=== PATIENT | female | born 1965 | race Caucasian/White ===

== ENCOUNTER 2018-01-31 22:18 | Emergency (ER) | payer OTHER ==
[~2018-01-31] VITALS: Ht 160 cm; Wt 106.6 kg
[~2018-01-31 22:18] MED LIST: XARELTO20 MG
--- NOTE | 2018-02-01 00:45 | Diagnostic Imaging Report ---
ANKLE 3 + VIEWS RIGHT HISTORY: Ankle injury COMPARISON: None FINDINGS: Bones: No displaced fracture. Osseous alignment is within normal limits. Joints: The joint spaces are well-maintained. Soft tissues: Moderate soft tissue swelling predominantly involving the medial malleolar region IMPRESSION: No acute osseous abnormality. Signed by: Dr. Jhon Mendoza M.D. on 02/01/2018 12:41 AM
[2018-02-01 00:56] VITALS: BP 112/76
== END 2018-02-01 01:08 | disposition home or self-care (01) ==
LOC: ER 22:18
DX: M25.571 Pain in right ankle and joints of right foot (principal); S99.911A Unspecified injury of right ankle, initial encounter; X50.1XXA Overexertion from prolonged static or awkward postures, initial encounter; Y92.008 Other place in unspecified non-institutional (private) residence as the place of occurrence of the external cause; F31.9 Bipolar disorder, unspecified; B19.10 Unspecified viral hepatitis B without hepatic coma; K21.9 Gastro-esophageal reflux disease without esophagitis; E78.00 Pure hypercholesterolemia, unspecified; F41.9 Anxiety disorder, unspecified; F17.210 Nicotine dependence, cigarettes, uncomplicated
CPT/HCPCS: 99283

== ENCOUNTER 2018-03-29 20:59 | Emergency (ER) | payer OTHER ==
[~2018-03-29] VITALS: Ht 160 cm; Wt 106.6 kg
--- NOTE | 2018-03-29 22:32 | Diagnostic Imaging Report ---
EXAM: PELVIS AP 1-2 VIEWS INDICATION: Not available COMPARISON: None FINDINGS: BONES: No acute fractures. JOINTS: No malalignment. SOFT TISSUES: Partially visualized IVC filter. Bilateral hip calcified injection granulomas. IMPRESSION: No acute pelvic findings. Signed by: Dr. Cheli Mcdonnell M.D. on 03/29/2018 10:29 PM
--- NOTE | 2018-03-29 22:32 | Diagnostic Imaging Report ---
EXAM: lumbar spine, 3 views, AP, lateral and coned lateral view INDICATION: Not available COMPARISON: None FINDINGS: BONES: Five lumbar-type vertebral bodies. The alignment is within normal limits. No acute displaced fractures. No lytic or blastic lesions. DISCS: The disc-spaces are well-maintained. JOINTS: The facet joints and sacroiliac joints are unremarkable. SOFT TISSUES: Right upper quadrant surgical clips. IVC filter at the L3/L4 level. Regional vascular calcifications. IMPRESSION: No acute lumbar spine radiographic findings. Signed by: Dr. Cheli Mcdonnell M.D. on 03/29/2018 10:28 PM
--- NOTE | 2018-03-29 22:34 | Diagnostic Imaging Report ---
EXAM: CHEST SINGLE (NOT PORTABLE), AP 1 view INDICATION: None available COMPARISON: AP view of the chest March 13, 2017 FINDINGS: LINES/TUBES: None LUNGS: No consolidations or edema. PLEURA: No effusions or pneumothorax. HEART AND MEDIASTINUM: Normal size and contour. BONES AND SOFT TISSUES: No acute findings. IMPRESSION: No acute thoracic abnormality. Signed by: Dr. Cheli Mcdonnell M.D. on 03/29/2018 10:31 PM
--- NOTE | 2018-03-29 23:23 | Diagnostic Imaging Report ---
Exams: Head and cervical spine CTs without IV contrast History: Trauma, fall, pain Comparison studies: None Technique: Axial images were obtained from the brain and cervical spine. Coronal and sagittal images reconstructed from the axial data. Dose modulation, iterative reconstruction, and/or weight based adjustment of the mA/kV was utilized to reduce the radiation dose to as low as reasonably achievable. Intravenous contrast: None Findings: Head CT: Scalp: No abnormalities. Bones: No fractures, blastic or lytic lesions. Extra-axial spaces: No masses. No fluid collections. Brain sulci: Appropriate for age. Ventricles: Normal in size and configuration. No hydrocephalus. Parenchyma: No abnormal densities. No masses, acute hemorrhage, acute or chronic vascular insults. Sellar/suprasellar region: No abnormalities. Craniocervical junction: The foramen magnum is patent. No Chiari one malformation. Cervical spine CT: Fractures: None. Soft tissues: No gross acute abnormalities. Atlantoaxial articulation: Intact. Alignment: Straightened cervical curvature may be positional. No subluxations. Cervicomedullary junction: No abnormalities. The foramen magnum is patent. Vertebrae: No infection or neoplasm. Degenerative changes: Disc height is maintained. Patent canal and foramina. Mild facet arthrosis at C4-C5 and C5-C6 on the left. Incidental findings: Calcified atherosclerosis in the cervical carotid bulbs and in the carotid siphons. IMPRESSION: Head CT: No acute abnormalities. Cervical spine CT: 1. No cervical spine fracture or subluxation. 2. Please note, cannot likely evaluate ligament, spinal cord and or vascular abnormalities on the basis of this examination. Signed by: Dr. Irvin Lanier M.D. on 03/29/2018 11:20 PM
[2018-03-29 23:55] VITALS: BP 110/58
--- OUTSIDE RECORDS SUMMARY | 2018-04-01 13:48 | XMS REPORT ---
Author Author [facility] Address Unknown Phone Unavailable Care Team Providers Care Chiropractor Assistant Name Role Phone Kit RIOS Unavailable Unavailable Sabino JHA Unavailable Unavailable Problems This patient has no known problems. Allergies, Adverse Reactions, Alerts This patient has no known allergies or adverse reactions. Medications This patient has no known medications. Results Test Description Test Time Test Comments Text Results Atomic Results Result Comments CT CERVICAL SPINE WO 2018-03-29 23:02:00 [place] [address] Patient Name: JOSHUA WEAVER MR #: [id number] : 1965 Age/Sex: 52/F Req #: [id number] Adm Physician: Ordered by: PELON RIOS MD Report #: [id number] Location: ER Room/Bed: Procedure: [id number] CT/CT CERVICAL SPINE WO Exam Date: 03/29/18 Exam Time: 2210 REPORT STATUS: Signed Exams: Head and cervical spine CTs without IV contrast History: Trauma, fall, pain Comparison studies: None Technique: Axial images were obtained from the brain and cervical spine. Coronal and sagittal images reconstructed from the axial data. Dose modulation, iterative reconstruction, and/or weight based adjustment of the mA/kV was utilized to reduce the radiation dose to as low as reasonably achievable. Intravenous contrast: None Findings: Head CT: Scalp: No abnormalities. Bones: No fractures, blastic or lytic lesions. Extra-axial spaces: No masses. No fluid collections. Brain sulci: Appropriate for age. Ventricles: Normal in size and configuration. No hydrocephalus. Parenchyma: No abnormal densities. No masses, acute hemorrhage, acute or chronic vascular insults. Sellar/suprasellar region: No abnormalities. Craniocervical junction: The foramen magnum is patent. No Chiari one malformation. Cervical spine CT: Fractures: None. Soft tissues: No gross acute abnormalities. Atlantoaxial articulation: Intact. Alignment: Straightened cervical curvature may be positional. No subluxations. Cervicomedullary junction: No abnormalities. The foramen magnum is patent. Vertebrae: No infection or neoplasm. Degenerative changes: Disc height is maintained. Patent canal and foramina. Mild facet arthrosis at C4-C5 and C5-C6 on the left. Incidental findings: Calcified atherosclerosis in the cervical carotid bulbs and in the carotid siphons. IMPRESSION: Head CT: No acute abnormalities. Cervical spine CT: 1. No cervical spine fracture or subluxation. 2. Please note, cannot likely evaluate ligament, spinal cord and or vascular abnormalities on the basis of this examination. Signed by: Dr. Rubio Lanier M.D. on 03/29/2018 11:20 PM Dictated By: RUBIO LANIER MD 19 Transcribed By: ORIANA on 03/29/182319 COPY TO: PELON RIOS MD CT BRAIN WO 2018-03-29 23:02:00 [place] [address] Patient Name: JOSHUA WEAVER MR #: [id number] : 1965 Age/Sex: 52/F Req #: [id number] Adm Physician: Ordered by: PELON RIOS MD Report #: [id number] Location: Room/Bed: Procedure: [id number] CT/CT BRAIN WO Exam Date: 03/29/18 Exam Time: 2209 REPORT STATUS: Signed Exams: Head and cervical spine CTs without IV contrast History: Trauma, fall, pain Comparison studies: None Technique: Axial images were obtained from the brain and cervical spine. Coronal and sagittal images reconstructed from the axial data. Dose modulation, iterative reconstruction, and/or weight based adjustment of the mA/kV was utilized to reduce the radiation dose to as low as reasonably achievable. Intravenous co ntrast: None Findings: Head CT: Scalp: No abnormalities. Bones: No fractures, blastic or lytic lesions. Extra-axial spaces: No masses. No fluid collections. Brain sulci: Appropriate for age. Ventricles: Normal in size and configuration. No hydrocephalus. Parenchyma: No abnormal densities. No masses, acute hemorrhage, acute or chronic vascular insults. Sellar/suprasellar region: No abnormalities. Craniocervical junction: The foramen magnum is patent. No Chiari one malformation. Cervical spine CT: Fractures: None. Soft tissues: No gross acute abnormalities. Atlantoaxial articulation: Intact. Alignment: Straightened cervical curvature may be positional. No subluxations. Cervicomedullary junction: No abnormalities. The foramen magnum is patent. Vertebrae: No infection or neoplasm. Degenerative changes: Disc height is maintained. Patent canal and foramina. Mild facet arthrosis at C4-C5 and C5-C6 on the left. Incidental findings: Calcified atherosclerosis in the cervical carotid bulbs and in the carotid siphons. IMPRESSION: Head CT: No acute abnormalities. Cervical spine CT: 1. No cervical spine fracture or subluxation. 2. Please note, cannot likely evaluate ligament, spinal cord and or vascular abnormalities on the basis of this examination. Signed by: Dr. Rubio Lanier M.D. on 03/29/2018 11:20 PM Dictated By: RUBIO LANIER MD 19 Transcribed By: ORIANA on 03/29/182319 COPY TO: PELON RIOS MD CHEST SINGLE (NOT PORTABLE) 2018-03-29 22:29:[address] [address] Patient Name: JOSHUA WEAVER MR #: [id number] : 1965 Age/Sex: 52/F Req #: [id number] Adm Physician: Ordered by: PELON RIOS MD Report #: [id number] Location: ER Room/Bed: Procedure: [id number] DX/CHEST SINGLE (NOT PORTABLE) Exam Date: 03/29/18 Exam Time: 2154 REPORT STATUS: Signed EXAM: CHEST SINGLE (NOT PORTABLE), AP 1 view INDICATION: None available COMPARISON: AP view of the chest March 13, 2017 FINDINGS: LINES/TUBES: None LUNGS: No consolidations or edema. PLEURA: No effusions or pneumothorax. HEART AND MEDIASTINUM: Normal size and contour. BONES AND SOFT TISSUES: No acute findings. IMPRESSION: No acute thoracic abnormality. Signed by: Dr. Fercho Mcdonnell M.D. on 03/29/2018 10:31 PM Dictated By: FERCHO MCDONNELL MD 30 Transcribed By: ORIANA on 03/29/182230 COPY TO: PELON RIOS MD PELVIS AP 1-2 VIEWS 2018-03-29 22:28:[address] [address] Patient Name: JOSHUA WEAVER MR #: [id number] : 1965 Age/Sex: 52/F Req #: [id number] Adm Physician: Ordered by: PELON RIOS MD Report #: [id number] Location: ER Room/Bed: Procedure: [id number] DX/PELVIS AP 1-2 VIEWS Exam Date: 03/29/18 Exam Time: 2154 REPORT STATUS: Signed EXAM: PELVIS AP 1-2 VIEWS INDICATION: Not available COMPARISON: None FINDINGS: BONES: No acute fractures. JOINTS: No malalignment. SOFT TISSUES: Partially visualized IVC filter. Bilateral hip calcified injection granulomas. IMPRESSION: No acute pelvic findings. Signed by: Dr. Fercho Mcdonnell M.D. on 03/29/2018 10:29 PM Dictated By: FERCHO MCDONNELL MD 28 Transcribed By: ORIANA on 03/29/182228 COPY TO: PELON RIOS MD SP LUMBAR AP LATERAL 2-3VWS 2018-03-29 22:27:00 [place] [address] Patient Name: JOSHUA WEAVER MR #: [id number] : 1965 Age/Sex: 52/F Req #: [id number] Adm Physician: Ordered by: PELON RIOS MD Report #: [id number] Location: ER Room/Bed: Procedure: [id number] DX/SP LUMBAR AP LATERAL 2-3VWS Exam Date: 03/29/18 Exam Time: 2154 REPORT STATUS: Signed EXAM: lumbar spine, 3 views, AP, lateral and coned lateral view INDICATION: Not available COMPARISON: None FINDINGS: BONES: Five lumbar-type vertebral bodies. The alignment is within normal limits. No acute displaced fractures. No lytic or blastic lesions. DISCS: The disc-spaces are well-maintained. JOINTS: The facet joints and sacroiliac joints are unremarkable. SOFT TISSUES: Right upper quadrant surgical clips. IVC filter at the L3/L4 level. Regional vascular calcifications. IMPRESSION: No acute lumbar spine radiographic findings. Signed by: Dr. Fercho Mcdonnell M.D. on 03/29/2018 10:28 PM Dictated By: FERCHO MCDONNELL MD 27 Transcribed By: ORIANA on 03/29/182227 COPY TO: PELON RIOS MD ANKLE 3 + VIEWS RIGHT 2018-02-01 00:41:00 [place] [address] Patient Name: JOSHUA WEAVER MR #: [id number] : 1965 Age/Sex: 52/F Req #: [id number] Adm Physician: Ordered by: KATE JHA MD Report #: [id number] Location: ER Room/Bed: Procedure: [id number] DX/ANKLE 3 + VIEWS RIGHT Exam Date: 01/31/18 Exam Time: 2340 REPORT STATUS: Signed ANKLE 3 + VIEWS RIGHT HISTORY: Ankle injury COMPARISON: None FINDINGS: Bones: No displaced fracture. Osseous alignment is within normal limits. Joints: The joint spaces are well-maintained. Soft tissues: Moderate soft tissue swelling predominantly involving the medial malleolar region IMPRESSION: No acute osseous abnormality. Signed by: Dr. Jhon Mendoza M.D. on 02/01/2018 12:41 AM Dictated By: JHON BATES MD Transcribed By: ORIANA on 02/01/1840 COPY TO: KATE JHA MD CHEST SINGLE (PORTABLE) [place] [address] Patient Name: JOSHUA WEAVER MR #: [id number] : 1965 Age/Sex: 51/F Req #: [id number] Adm Physician: Ordered by: BAILEY JACKMAN NP Report #: [id number] Location: ER Room/Bed: Procedure: [id number] DX/CHEST SINGLE (PORTABLE) Exam Date: 03/13/17 Exam Time: 2017 REPORT STATUS: Signed EXAMINATION: CHEST SINGLE (PORTABLE) INDICATION: COMPARISON: None FINDINGS: AP view TUBES and LINES: None. LUNGS: Low lung volumes. Lungs are clear. There is no evidence of pneumonia or pulmonary edema. PLEURA: No pleural effusion or pneumothorax. HEART AND MEDIASTINUM: The cardiomediastinal silhouette is unremarkable. BONES AND SOFT TISSUES: No acute osseous lesion. Soft tissues are unremarkable. UPPER ABDOMEN: No free air under the diaphragm. IMPRESSION: No acute thoracic abnormality. Low lung volumes. Signed by: Dr. Chris Billings M.D. on 03/13/2017 8:56 PM Dictated By: CHRIS BILLINGS MD 55 Transcribed By: ORIANA on 03/13/172055 COPY TO: BAILEY JACKMAN NP
== END 2018-03-30 00:03 | disposition home or self-care (01) ==
LOC: ER 20:59
DX: M54.2 Cervicalgia (principal); S16.1XXA Strain of muscle, fascia and tendon at neck level, initial encounter; M54.5 Low back pain; W01.0XXA Fall on same level from slipping, tripping and stumbling without subsequent striking against object, initial encounter; Y92.008 Other place in unspecified non-institutional (private) residence as the place of occurrence of the external cause; G89.29 Other chronic pain; F17.210 Nicotine dependence, cigarettes, uncomplicated
CPT/HCPCS: 70450; 71045; 72100; 72125; 72170; 99282

== ENCOUNTER 2018-09-21 08:32 | Emergency (ER) | payer OTHER ==
[~2018-09-21] VITALS: Ht 160 cm; Wt 106.6 kg
--- OUTSIDE RECORDS SUMMARY | 2018-09-21 08:35 | XMS REPORT ---
Author Author [facility] Address Unknown Phone Unavailable Care Team Providers Care Director Insurance Name Role Phone Kit RIOS Unavailable Unavailable Sabino JHA Unavailable Unavailable Payers Payer Name Policy Type Policy Number Effective Date Expiration Date Problems This patient has no known problems. Allergies, Adverse Reactions, Alerts Allergy Name Allergy Type Status Severity Reaction(s) Onset Date Inactive Date Treating Clinician Comments ketorolac tromethamine DA Active SV 2018-04-24 00:00:00 ciprofloxacin HCl DA Active SV 2018-04-24 00:00:00 sumatriptan succinate DA Active SV 2018-04-24 00:00:00 tramadol HCl DA Active SV 2018-04-24 00:00:00 sumatriptan DA Active SV 2018-04-24 00:00:00 tazobactam DA Active SV 2018-04-24 00:00:00 cyclobenzaprine DA Active U 2018-04-24 00:00:00 piperacillin DA Active SV 2018-04-24 00:00:00 vancomycin DA Active SV 2018-04-24 00:00:00 ketorolac tromethamine DA Active SV 2017-12-29 00:00:00 ciprofloxacin HCl DA Active SV 2017-12-29 00:00:00 sumatriptan succinate DA Active SV 2017-12-29 00:00:00 tramadol HCl DA Active SV 2017-12-29 00:00:00 acetaminophen DA Active MO 2017-12-29 00:00:00 sumatriptan DA Active SV 2017-12-29 00:00:00 tazobactam DA Active SV 2017-12-29 00:00:00 cyclobenzaprine DA Active U 2017-12-29 00:00:00 piperacillin DA Active SV 2017-12-29 00:00:00 vancomycin DA Active SV 2017-12-29 00:00:00 Medications This patient has no known medications. Results Test Description Test Time Test Comments Text Results Atomic Results Result Comments BASIC METABOLIC PANEL 2018-08-15 17:43:00 SODIUM (test code=NA) 138 mmol/L 136-145 POTASSIUM (test code=K) 4.4 mmol/L 3.5-5.1 CHLORIDE (test code=CL) 106.0 mmol/L 98-107 CARBON DIOXIDE (test code=CO2) 26.0 mmol/L 21-32 ANION GAP (test code=GAP) 10.4 10-20 GLUCOSE (test code=GLU) 89 mg/dL 74-106 BLOOD UREA NITROGEN (test code=BUN) 7 mg/dL 7-18 GLOMERULAR FILTRATION RATE (test code=GFR) > 60 mL/min >=60 Estimated GFR by using Modified MDRD formula.Chronic kidney disease is defined as either kidney damageor GFR <60 mL/min/1.73 m2 for >3 months. CREATININE (test code=CREAT) 0.60 mg/dL 0.55-1.02 Note change in reference range due to change in reagent. BUN/CREATININE RATIO (test code=BUN/CREA) 11.1 10-20 CALCIUM (test code=CA) 9.1 mg/dL 8.5-10.1 CBC W/AUTO [id number] 17:12:00* Test Item Value Reference Range Comments WHITE BLOOD CELL (test code=WBC) 8.0 K/mm3 4.5-12.5 RED BLOOD CELL (test code=RBC) 4.99 mill/mm3 3.7-5.2 HEMOGLOBIN (test code=HGB) 14.5 gram/dL 11.5-15.5 HEMATOCRIT (test code=HCT) 47.3 % 36.0-46.0 MEAN CELL VOLUME (test code=MCV) 94.8 fL 80-98 MEAN CELL HGB (test code=MCH) 29.1 picogram 27.0-33.0 MEAN CELL HGB CONCETRATION (test code=MCHC) 30.7 gram/dL 33.0-36.0 RED CELL DISTRIBUTION WIDTH (test code=RDW) 13.4 % 11.6-16.2 RED CELL DISTRIBUTION WIDTH SD (test code=RDW-SD) 46.7 fL 37.0-51.0 PLATELET COUNT (test code=PLT) 274 K/mm3 150-450 MEAN PLATELET VOLUME (test code=MPV) 10.9 fL 6.7-11.0 NEUTROPHIL % (test code=NT%) 52.2 % 39.0-69.0 IMMATURE GRANULOCYTE % (test code=IG%) 0.4 % 0.0-5.0 LYMPHOCYTE % (test code=LY%) 41.2 % 25.0-55.0 MONOCYTE % (test code=MO%) 4.6 % 0.0-10.0 EOSINOPHIL % (test code=EO%) 1.1 % 0.0-5.0 BASOPHIL % (test code=BA%) 0.5 % 0.0-1.0 NUCLEATED RBC % (test code=NRBC%) 0.0 % 0-0 NEUTROPHIL # (test code=NT#) 4.19 K/mm3 1.8-7.7 IMMATURE GRANULOCYTE # (test code=IG#) 0.03 x10 3/uL 0-0.03 LYMPHOCYTE # (test code=LY#) 3.31 K/mm3 1.0-5.0 MONOCYTE # (test code=MO#) 0.37 K/mm3 0-0.8 EOSINOPHIL # (test code=EO#) 0.09 K/mm3 0.0-0.5 BASOPHIL # (test code=BA#) 0.04 K/mm3 0.0-0.2 NUCLEATED RBC # (test code=NRBC#) 0.00 K/mm3 0.0-0.1 CBC W/AUTO [id number] 17:10:00* Test Item Value Reference Range Comments WHITE BLOOD CELL (test code=WBC) K/mm3 4.5-12.5 RED BLOOD CELL (test code=RBC) mill/mm3 3.7-5.2 HEMOGLOBIN (test code=HGB) 14.5 gram/dL 11.5-15.5 HEMATOCRIT (test code=HCT) % 36.0-46.0 MEAN CELL VOLUME (test code=MCV) fL 80-98 MEAN CELL HGB (test code=MCH) picogram 27.0-33.0 MEAN CELL HGB CONCETRATION (test code=MCHC) gram/dL 33.0-36.0 RED CELL DISTRIBUTION WIDTH (test code=RDW) % 11.6-16.2 RED CELL DISTRIBUTION WIDTH SD (test code=RDW-SD) fL 37.0-51.0 PLATELET COUNT (test code=PLT) K/mm3 150-450 MEAN PLATELET VOLUME (test code=MPV) fL 6.7-11.0 NEUTROPHIL % (test code=NT%) % 39.0-69.0 IMMATURE GRANULOCYTE % (test code=IG%) % 0.0-5.0 LYMPHOCYTE % (test code=LY%) % 25.0-55.0 MONOCYTE % (test code=MO%) % 0.0-10.0 EOSINOPHIL % (test code=EO%) % 0.0-5.0 BASOPHIL % (test code=BA%) % 0.0-1.0 NEUTROPHIL # (test code=NT#) K/mm3 1.8-7.7 LYMPHOCYTE # (test code=LY#) K/mm3 1.0-5.0 MONOCYTE # (test code=MO#) K/mm3 0-0.8 EOSINOPHIL # (test code=EO#) K/mm3 0.0-0.5 BASOPHIL # (test code=BA#) K/mm3 0.0-0.2 [id number] 10:27:00* Test Item Value Reference Range Comments GLUBED (test code=GLUBED) 123 MG/DL 70-110 Performed by certified welding machine operator electron beam at [facility] URINALYSIS [id number] 12:19:00* Test Item Value Reference Range Comments UA COLOR (test code=COLU) YELLOW YEL/STRAW UA APPEARANCE (test code=APPU) CLEAR CLEAR UA GLUCOSE DIPSTICK (test code=DGLUU) NEGATIVE NEGATIVE UA BILIRUBIN DIPSTICK (test code=BILU) NEGATIVE NEGATIVE UA KETONE DIPSTICK (test code=KETU) NEGATIVE NEGATIVE UA SPECIFIC GRAVITY (test code=SGU) 1.008 1.005-1.030 UA BLOOD DIPSTICK (test code=LUCRETIA) NEGATIVE NEGATIVE UA PH DIPSTICK (test code=MICHAEL) 6.0 5.0-7.0 UA PROTEIN DIPSTICK (test code=PROU) NEGATIVE NEGATIVE UA UROBILINIOGEN DIPSTICK (test code=URO) 0.2 mg/dL 0.2-1.0 UA NITRITE DIPSTICK (test code=JESENIA) POSITIVE NEGATIVE UA LEUKOCYTE ESTERASE DIPSTICK (test code=LEUU) TRACE NEGATIVE UA WBC (test code=WBCU) 4-9 WBC/HPF 0-3 UA RBC (test code=RBCU) 0-3 RBC/HPF 0-3 UA BACTERIA (test code=BACU) 3+ /HPF NONE SEEN UA SQUAMOUS CELLS (test code=SQU) 0-5 /HPF NONE SEEN UA CULT [id number] 12:19:00* Test Item Value Reference Range Comments UA CULTURE NEEDED? (test code=UACULT) NO, WBC<10 Criteria Culture Chk Criteria not met, Urine Culture cancelled. LACTIC ACID [id number] 12:16:00* Test Item Value Reference Range Comments LACTIC ACID POC (test code=LACTP) 1.3 MMOL/L 0.90-1.70 Performed by certified welding machine operator electron beam at [facility] - XR CHEST 1 [id number] 12:10:00 FAX: Woody Siddiqui DO [phone] [place]: St: REG Name: JOSHUA MONTEMAYOR [facility] [place] : [birth year] Age/S: 52/F [address] [place] [address] Unit #: [id number] Loc: [place] [address] Phys: Woody Sy DO Acct: [id number] Dis Date: Status: REG ER PHONE #: [phone] Exam Date: 07/24/2018 5891 FAX #: [phone] Reason: leukocytosis EXAMS: CPT CODE: [id number] XR CHEST 1 V 43965 EXAM: CHEST SINGLE VIEW HISTORY: 52-year-old female with leukocytosis COMPARISON: Chest radiograph 04/24/2018 FINDINGS: The lungs are clear. The cardiome diastinal silhouette is normal for projection. No acute osseous abnormali ty. IMPRESSION: 1. No acute cardiopulmonary ab normality. SL: [id number] Electronica lly Signed by Chun Calles on 07/24/2018 at 1210 Repo rted and signed by: Merced Calles M.D. CC: Woody Sy DO Technologist: Markus Shook RT(R) Trnscrd Date/Time/By: 07/24/2018 (1210) : By: Fercho [email or web address] Orig Print D/T: S: 07/24/2018 (3053) PAG E 1 Signed Report BASIC METABOLIC [id number] 11:10:00* Test Item Value Reference Range Comments SODIUM (test code=NA) 136 mEq/L 134-147 POTASSIUM (test code=K) 3.8 mEq/L 3.4-5.0 CHLORIDE (test code=CL) 103 mEq/L 100-108 CARBON DIOXIDE (test code=CO2) 27 mEq/L 21-33 ANION GAP (test code=GAP) 10 0-20 GLUCOSE (test code=GLU) 115 mg/dL 70-110 BLOOD UREA NITROGEN (test code=BUN) 7 mg/dL 7-18 GLOMERULAR FILTRATION RATE (test code=GFR) 104.2 90-95 Units of measure=ml/min/1.73 m2 CREATININE (test code=CREAT) 0.6 mg/dL 0.6-1.3 CALCIUM (test code=CA) 8.7 mg/dL 8.0-10.5 [id number] 11:10:00* Test Item Value Reference Range Comments TROPONIN-I (test code=TROPI) < 0.015 ng/mL 0.000-0.045 Negative: <=0.045 Positive: >=0.046 Correlation with serial results, other cardiac markers andclinical findings is necessary to determine the clinicalsignificance of this result. Results using different methodologies should not be comparedto one another as quantitative results may vary by method. - CT HEAD/BRAIN W/O [id number] 10:46:00 Name: JOSHUA WEAVER [facility] [place] John : 1965 Age/S: 52 / F [address] [place] [address] Unit #: [id number] Loc: [place] [address] Phys: Woody Sy DO Acct: [id number] Dis Date: Status: REG ER PHONE #: [phone] Exam Date: 07/24/2018 1036 FAX #: [phone] Reason: LEFT SIDE WEAKNESS EXAMS: CPT CODE: [id number] CT HEAD/BRAIN W/O CONT 98861 CT head without contrast 07/24/2018 HISTORY: Code neuro, left-sided weakness PROCEDURE: Multiple axial images from the base to the skull vertex were obtained without contrast. Coronal and sagittal reconstructed images were performed. DLP: 419.7 Comparison is made to 04/24/2018 FINDINGS: No acute hemorrhage, midline shift, extra-axial fluid collection, hydrocephalus, or mass lesion is present. No cortical hypodensity to suggest an acute infarct is noted. Zapata-white differentiation is within normal limits. Distal internal carotid arterial calcifications are present. The visualized mastoid air cells are clear. There is no air-fluid level in the visualized paranasal sinuses. IMPRESSION: No acute intracranial abnormality Findings were discussed with Dr. Sy by Dr. Monge at 10:45 AM on 07/24/2018. SL: [id number] at 1046 Reported and signed by: Chetan Monge M.D. CC: Woody Sy DO Technologist:Purnima Petersen RT(R)(CT) CTDI: DLP: Trnscb Date/Time: 07/24/2018 (7755) [id number] Orig Print D/T: S: 07/24/2018 (4709) CTDI: DLP: PAGE 1 Signed Report PROTHROMBIN [id number] 10:43:00* Test Item Value Reference Range Comments PROTHROMBIN TIME PATIENT (test code=PTP) 14.8 SECONDS 9.3-12.9 INTERNATIONAL NORMAL RATIO (test code=INR) 1.3 0.8-1.2 TARGET INR BY INDICATION Indication INR1. Prophylaxis of venous thrombosis 2.0 - 3.0 (orthopedic surgery), Prophylaxis of venous thrombosis (other than high-risk surgery), Treatment of Deep Vein Thrombosis/Pulmonary Embolism, Prevention of systemic embolism - Tissue heart valves, Acute Myocardial Infarction (to prevent systemic embolism), Valvular heart disease, Atrial Fibrillation, Bileaflet mechanical valve in aortic position.2. Mechanical prosthetic valves (high risk), 2.5 - 3.5 Presence of Lupus Anticoagulant or Antiphospholipid Antibodies, Prevention of systemic embolism - Acute Myocardial Infarction (to prevent recurrent infarct). THROMBOPLASTIN TIME [id number] 10:43:00* Test Item Value Reference Range Comments THROMBOPLASTIN TIME PARTIAL (test code=PTT) 24.8 Seconds 25.0-39.5 Therapeutic Range: 61.8-83.8 Sec Effective 07/15/2013 CBC W/O [id number] 10:40:00* Test Item Value Reference Range Comments WHITE BLOOD CELL (test code=WBC) 16.45 x10 3/uL 4.5-11.0 RED BLOOD CELL (test code=RBC) 4.11 x10 6/uL 3.54-5.02 HEMOGLOBIN (test code=HGB) 12.4 g/dL 11.0-15.0 HEMATOCRIT (test code=HCT) 39.4 % 33.0-45.0 MEAN CELL VOLUME (test code=MCV) 95.9 fL 81.0-99.0 MEAN CELL HGB (test code=MCH) 30.2 pg 27.0-33.0 MEAN CELL HGB CONCETRATION (test code=MCHC) 31.5 g/dL 33.0-37.0 RED CELL DISTRIBUTION WIDTH CV (test code=RDW) 13.3 % 11.5-14.5 RED CELL DISTRIBUTION WIDTH SD (test code=RDW-SD) 47.1 fL 37.0-54.0 PLATELET COUNT (test code=PLT) 336 x10 3/uL 150-400 MEAN PLATELET VOLUME (test code=MPV) 10.1 fL 7.0-9.0 B-TYPE NATRIURETIC [id number] 02:15:00* Test Item Value Reference Range Comments B-TYPE NATRIURETIC PEPTIDE (test code=BNP) 40.87 pgram/mL 0-100 BASIC METABOLIC [id number] 01:48:00* Test Item Value Reference Range Comments SODIUM (test code=NA) 139 mmol/L 136-145 POTASSIUM (test code=K) 4.0 mmol/L 3.5-5.1 CHLORIDE (test code=CL) 105.0 mmol/L 98-107 CARBON DIOXIDE (test code=CO2) 25.0 mmol/L 21-32 ANION GAP (test code=GAP) 13.0 10-20 GLUCOSE (test code=GLU) 93 mg/dL 74-106 BLOOD UREA NITROGEN (test code=BUN) 11 mg/dL 7-18 GLOMERULAR FILTRATION RATE (test code=GFR) > 60 mL/min >=60 Estimated GFR by using Modified MDRD formula.Chronic kidney disease is defined as either kidney damageor GFR <60 mL/min/1.73 m2 for >3 months. CREATININE (test code=CREAT) 0.70 mg/dL 0.55-1.02 Note change in reference range due to change in reagent. BUN/CREATININE RATIO (test code=BUN/CREA) 16.0 10-20 CALCIUM (test code=CA) 8.6 mg/dL 8.5-10.1 HEPATIC FUNCTION [id number] 01:48:00* Test Item Value Reference Range Comments TOTAL PROTEIN (test code=PROT) 7.1 gram/dL 6.4-8.2 ALBUMIN (test code=ALB) 3.0 g/dL 3.4-5.0 GLOBULIN (test code=GLOB) 4.1 gram/dL 2.7-4.2 ALBUMIN/GLOBULIN RATIO (test code=A/G) 0.7 0.75-1.50 BILIRUBIN TOTAL (test code=BILT) 0.30 mg/dL 0.0-1.0 BILIRUBIN DIRECT (test code=BILD) 0.08 mg/dL 0.0-0.20 SGOT/AST (test code=AST) 28 IUnit/L 15-37 SGPT/ALT (test code=ALT) 16 IUnit/L 12-78 ALKALINE PHOSPHATASE TOTAL (test code=ALKP) 82 IUnit/L 45-117 Note change in reference range due to change in reagent. [id number] 01:48:00* Test Item Value Reference Range Comments LIPASE (test code=LIP) 58 U/L 73.0-393.0 BASIC METABOLIC [id number] 01:40:00* Test Item Value Reference Range Comments SODIUM (test code=NA) 139 mmol/L 136-145 POTASSIUM (test code=K) 4.0 mmol/L 3.5-5.1 CHLORIDE (test code=CL) 105.0 mmol/L 98-107 CARBON DIOXIDE (test code=CO2) mmol/L 21-32 ANION GAP (test code=GAP) 10-20 GLUCOSE (test code=GLU) mg/dL 74-106 BLOOD UREA NITROGEN (test code=BUN) mg/dL 7-18 GLOMERULAR FILTRATION RATE (test code=GFR) mL/min >=60 CREATININE (test code=CREAT) mg/dL 0.55-1.02 BUN/CREATININE RATIO (test code=BUN/CREA) 10-20 CALCIUM (test code=CA) mg/dL 8.5-10.1 HEPATIC FUNCTION [id number] 01:40:00* Test Item Value Reference Range Comments TOTAL PROTEIN (test code=PROT) gram/dL 6.4-8.2 ALBUMIN (test code=ALB) g/dL 3.4-5.0 GLOBULIN (test code=GLOB) gram/dL 2.7-4.2 ALBUMIN/GLOBULIN RATIO (test code=A/G) 0.75-1.50 BILIRUBIN TOTAL (test code=BILT) mg/dL 0.0-1.0 BILIRUBIN DIRECT (test code=BILD) mg/dL 0.0-0.20 SGOT/AST (test code=AST) IUnit/L 15-37 SGPT/ALT (test code=ALT) IUnit/L 12-78 ALKALINE PHOSPHATASE TOTAL (test code=ALKP) IUnit/L 45-117 [id number] 01:40:00* Test Item Value Reference Range Comments LIPASE (test code=LIP) U/L 73.0-393.0 URINALYSIS [id number] 01:31:00* Test Item Value Reference Range Comments UA COLOR (test code=COLU) BLOODY YELLOW UA APPEARANCE (test code=APPU) HAZY CLEAR UA GLUCOSE DIPSTICK (test code=DGLUU) NEGATIVE mg/dL NEGATIVE UA BILIRUBIN DIPSTICK (test code=BILU) 1+ (SMALL) NEGATIVE UA KETONE DIPSTICK (test code=KETU) NEGATIVE mg/dL NEGATIVE UA SPECIFIC GRAVITY (test code=SGU) >=1.030 1.001-1.035 UA BLOOD DIPSTICK (test code=LUCRETIA) 3+ (Large) NEGATIVE UA PH DIPSTICK (test code=MICHAEL) 6.0 5.0-8.0 UA PROTEIN DIPSTICK (test code=PROU) 100 (2+) mg/dL Neg-15 UA UROBILINIOGEN DIPSTICK (test code=URO) 1 mg/dL (1+) mg/dL 0.0-0.2 UA NITRITE DIPSTICK (test code=JESENIA) NEGATIVE NEGATIVE UA LEUKOCYTE ESTERASE W REFLEX (test code=LEUUR) TRACE NEGATIVE UA WBC (test code=WBCU) 3-5 per HPF 0-5 IN SOME URINARY TRACT INFECTIONS THERE MAY NOT BE ENOUGHWBCs IN THE URINE TO TRIGGER AN AUTOMATIC (REFLEX) URINECULTURE. A SEPERATE ORDER FOR URINE CULTURE IS RECOMMENDEDIF THERE IS STRONG SUPPORT FOR A URINARY TRACT INFECTIONCLINICALLY. UA RBC (test code=RBCU) 15-25 per HPF 0-5 UA EPITHELIAL CELLS (test code=EPIU) Few (2-5/hpf) per HPF Few UA BACTERIA (test code=BACU) NONE SEEN per HPF NONE UA MUCUS (test code=MUCU) FEW per LPF NONE-FEW Urine Source? Clean CatchURINALYSIS [id number] 01:26:00* Test Item Value Reference Range Comments UA COLOR (test code=COLU) BLOODY YELLOW UA APPEARANCE (test code=APPU) HAZY CLEAR UA GLUCOSE DIPSTICK (test code=DGLUU) NEGATIVE mg/dL NEGATIVE UA BILIRUBIN DIPSTICK (test code=BILU) 1+ (SMALL) NEGATIVE UA KETONE DIPSTICK (test code=KETU) NEGATIVE mg/dL NEGATIVE UA SPECIFIC GRAVITY (test code=SGU) >=1.030 1.001-1.035 UA BLOOD DIPSTICK (test code=LUCRETIA) 3+ (Large) NEGATIVE UA PH DIPSTICK (test code=MICHAEL) 6.0 5.0-8.0 UA PROTEIN DIPSTICK (test code=PROU) 100 (2+) mg/dL Neg-15 UA UROBILINIOGEN DIPSTICK (test code=URO) 1 mg/dL (1+) mg/dL 0.0-0.2 UA NITRITE DIPSTICK (test code=JESENIA) NEGATIVE NEGATIVE UA LEUKOCYTE ESTERASE W REFLEX (test code=LEUUR) TRACE NEGATIVE UA WBC (test code=WBCU) per HPF 0-5 Urine Source? Clean CatchPROTHROMBIN [id number] 23:09:00* Test Item Value Reference Range Comments PROTHROMBIN TIME PATIENT (test code=PTP) 14.6 seconds 9.0-14.0 INTERNATIONAL NORMAL RATIO (test code=INR) 1.2 0.8-1.2 The therapeutic range for oral anticoagulant therapy formost indications is an international normalized ratio (INR)of between 2.0 and 3.0. The recommended therapeutic INRrange for various clinical situations is listed below: Clinical Situation INR range Pulmonary e mbolism treatment (2.0-3.0)Venous thrombosis treatmentVenous thrombosis prophylaxis (high risk surgery)Prevention of systemic embolism from: Acute myocardial infarction Valvular heart disease Atrial fibrillation Mechanical prosthetic heart valves (2.5-3.5) IS PATIENT ON ANTICOAGULANTS? YLIST ANTICOAGULANTS XARELTOTHROMBOPLASTIN TIME [id number] 23:09:00* Test Item Value Reference Range Comments THROMBOPLASTIN TIME PARTIAL (test code=PTT) 31.9 seconds 25.0-36.5 IS PATIENT ON ANTICOAGULANTS? YLIST ANTICOAGULANTS XARELTOCBC W/O [id number] 22:56:00* Test Item Value Reference Range Comments WHITE BLOOD CELL (test code=WBC) 12.9 K/mm3 4.5-12.5 RED BLOOD CELL (test code=RBC) 3.93 mill/mm3 3.7-5.2 HEMOGLOBIN (test code=HGB) 11.8 gram/dL 11.5-15.5 HEMATOCRIT (test code=HCT) 38.3 % 36.0-46.0 MEAN CELL VOLUME (test code=MCV) 97.5 fL 80-98 MEAN CELL HGB (test code=MCH) 30.0 picogram 27.0-33.0 MEAN CELL HGB CONCETRATION (test code=MCHC) 30.8 gram/dL 33.0-36.0 RED CELL DISTRIBUTION WIDTH (test code=RDW) 13.2 % 11.6-16.2 PLATELET COUNT (test code=PLT) 265 K/mm3 150-450 MEAN PLATELET VOLUME (test code=MPV) 10.1 fL 6.7-11.0 CT CERVICAL SPINE [id number] 23:02:00 [place] [address] Patient Name: JOSHUA WEAVER MR #: [id number] : 1965 Age/Sex: 52/F Req #: [id number] Adm Physician: Ordered by: PELON RIOS MD Report #: [id number] Location: ER Room/Bed: Procedure: [id number] CT/CT CERVICAL SPINE WO Exam Date: 03/29/18 Exam Time: 2209 REPORT STATUS: S igned Exams: Head and cervical spine CTs without IV contrast History: Traum a, fall, pain Comparison studies: None Technique: Axial images were obt ained from the brain and cervical spine. Coronal and sagittal images reconstru cted from the axial data. Dose modulation, iterative reconstruction, and/or we ight based adjustment of the mA/kV was utilized to reduce the radiation dose t o as low as reasonably achievable. Intravenous contrast: None Findings: Head CT: Scalp: No abnormalities. Bones: No fractures, matthew stic or lytic lesions. Extra-axial spaces: No masses. No fluid collections . Brain sulci: Appropriate for age. Ventricles: Normal in size and config uration. No hydrocephalus. Parenchyma: No abnormal densities. No shadi s, acute hemorrhage, acute or chronic vascular insults. Sellar/suprasellar region: No abnormalities. Craniocervical junction: The foramen magnum is paten t. No Chiari one malformation. Cervical spine CT: Fractures: None. Soft tissues: No gross acute abnormalities. Atlantoaxial articulation: In tact. Alignment: Straightened cervical curvature may be positional. No subluxa tions. Cervicomedullary junction: No abnormalities. The foramen magnum is rizzo nt. Vertebrae: No infection or neoplasm. Degenerative changes: D isc height is maintained. Patent canal and foramina. Mild facet arthrosis at C 4-C5 and C5-C6 on the left. Incidental findings: Calcified atherosclerosi s in the cervical carotid bulbs and in the carotid siphons. IMPRESSION: Head CT: No acute abnormalities. Cervical spine CT: 1. No cervical spine fracture or subluxation. 2. Please note, cannot likely evaluate ligame nt, spinal cord and or vascular abnormalities on the basis of this examination . Signed by: Dr. Rubio Dahl M.D. on 03/29/2018 11:20 PM Dictate d By: RUBIO DAHL MD 19 COPY TO: PELON RIOS MD CT BRAIN [id number] 23:02:00 [place] [address] Patient Name: JOSHUA WEAVER MR #: [id number] : 1965 Age/Sex: 52/F Req #: [id number] Adm Physician: Ordered by: PELON RIOS MD Report #: [id number] Location: Room/Bed: Procedure: [id number] CT/CT BRAIN WO Exam Date: Exam Time: 2209 REPORT STATUS: Signed Exams: Head and cervical spine CTs without IV contrast History: Trauma, fall, pain Comparison studies: None Technique: Axial images were obtained fro m the brain and cervical spine. Coronal and [...] acute or chronic vascular insults. Sellar/suprasellar region: N o abnormalities. Craniocervical junction: The foramen magnum is patent. No Ch iari one malformation. Cervical spine CT: Fractures: None. Soft ti ssues: No gross acute abnormalities. Atlantoaxial articulation: Intact. A lignment: Straightened cervical curvature may be positional. No subluxations. Cervicomedullary junction: No abnormalities. The foramen magnum is patent. Vertebrae: No infection or neoplasm. Degenerative changes: Disc heigh t is maintained. Patent canal and foramina. Mild facet arthrosis at C4-C5 and C5-C6 on the left. Incidental findings: Calcified atherosclerosis in the cervical carotid bulbs and in the carotid siphons. IMPRESSION: Head CT: No acute abnormalities. Cervical spine CT: 1. No cervical spine fr acture or subluxation. 2. Please note, cannot likely evaluate ligament, spina l cord and or vascular abnormalities on the basis of this examination. S igned by: Dr. Rubio Dahl M.D. on 03/29/2018 11:20 PM Dictated By: SHERIN DAHL MD 19 Transcribed By: ORIANA on 03/29/182319 COPY TO: PELON RIOS MD CHEST SINGLE (NOT PORTABLE)2018-03-29 22:29:00 [facility] [address] [address] Patient Name: JOSHUA WEAVER MR #: [id number] : 1965 Age/Sex: 52/F Req #: [id number] Adm Physician: Ordered by: PELON RIOS MD Report #: [id number] Location: ER Room/Bed: Procedure: [id number] DX/CHEST SINGLE (NOT PORTABLE) Exam Date: 03/29/18 Exam Time: 2154 ST ATUS: Signed EXAM: CHEST SINGLE (NOT PORTABLE), AP 1 view INDICATION: None available COMPARISON: AP view of the chest March 13, 2017 FINDINGS: LINES/TUBES: None LUNGS: No consolidations or edema. PLEURA: No effu sions or pneumothorax. HEART AND MEDIASTINUM: Normal size and contour. BONES AND SOFT TISSUES: No acute findings. IMPRESSION: No acute thoracic abnormality. Signed by: Dr. Fercho Mcdonnell M.D. on 03/29/2018 1 0:31 PM Dictated By: FERCHO MCDONNELL MD 30 Transcribed By: ORIANA on 03/29/182230 COPY T O: PELON RIOS MD PELVIS AP 1-2 [id number] 22:28:00 [address] [address] Patient Name: JOSHUA WEAVER MR #: [id number] : 1965 Age/Sex: 52/F Req #: [id number] Adm Physician: Ordered by: PELON RIOS MD Report #: [id number] Location: ER Room/Bed: Procedure: [id number] DX/PELVIS AP 1-2 VIEWS Exam D ate: 03/29/18 Exam Time: 2154 REPORT STATUS: Si gned EXAM: PELVIS AP 1-2 VIEWS INDICATION: Not available COMPARISON: None FINDINGS: BONES: No acute fractures. JOINTS: No malalignment. SOFT TISSUES: Partially visualized IVC filter. Bilateral hip calcified in jection granulomas. IMPRESSION: No acute pelvic findings. Signed by: Dr. Fercho Mcdonnell M.D. on 03/29/2018 10:29 PM Dictated By: FERCHO MCDONNELL MD 28 Transc ribed By: ORIANA on 03/29/182228 COPY TO: PELON RIOS MD SP LUMBAR AP LATERAL [id number] 22:27:00 [address] [address] Patient Name: JOSHUA WEAVER MR #: [id number] : 1965 Age/Sex: 52/F Req #: [id number] Adm Physician: Ordered by: PELON RIOS MD Report #: [id number] Location: ER Room/Bed: Procedure: [id number] DX/SP LUMBAR AP LATERAL 2-3V WS Exam Date: 03/29/18 Exam Time: 2154 REPORT STATUS: Signed EXAM: lumbar spine, 3 views, AP, lateral and coned lateral vie w INDICATION: Not available COMPARISON: None FINDINGS: BONES: Fi ve lumbar-type vertebral bodies. The alignment is within normal limits. No a cute displaced fractures. No lytic or blastic lesions. DISCS: The disc- spaces are well-maintained. JOINTS: The facet joints and sacroiliac joint s are unremarkable. SOFT TISSUES: Right upper quadrant surgical clips. IV C filter at the L3/L4 level. Regional vascular calcifications. IMPRESSION : No acute lumbar spine radiographic findings. Signed by: Dr. Fercho Mcdonnell M.D. on 03/29/2018 10:28 PM Dictated By: FERCHO MCDONNELL MD 27 Transcribed By: Songbird DE LEON on 03/29/182227 COPY TO: PELON RIOS MD ANKLE 3 + VIEWS [id number] 00:41:00 [place] [address] Patient Name: JOSHUA WEAVER MR #: [id number] : 1965 Age/Sex: 52/F Req #: [id number] Adm Physician: Ordered by: KATE JHA MD Report #: [id number] Location: ER Room/Bed: Procedure: [id number] DX/ANKLE 3 + VIEWS SAMMI Andrews Exam Date: 01/31/18 Exam Time: 2340 REPORT S TATUS: Signed ANKLE 3 + VIEWS RIGHT HISTORY: Ankle injury COMPARIS ON: None FINDINGS: Bones: No displaced fracture. Osseous align ment is within normal limits. Joints: The joint spaces are well-maintaine d. Soft tissues: Moderate soft tissue swelling predominantly involving th e medial malleolar region IMPRESSION: No acute osseous abnormality. Signed by: Dr. Jhon Mendoza M.D. on 02/01/2018 12:41 AM Dictated By: JHON BATES MD COPY TO: KATE MARCELO MD CHEST SINGLE (PORTABLE) [place] [address] Patient Name: JOSHUA WEAVER MR #: [id number] : 1965 Age/Sex: 51/F Req #: [id number] Adm Physician: Ordered by: BAILEY JACKMAN ROUTING MACHINE OPERATOR Report #: [id number] Location: ER Room/Bed: Procedure: [id number] DX/CHEST SINGLE (PORTABLE) Exam Date: 03/13/17 Exam Time: 2017 REPORT STA TUS: Signed EXAMINATION: CHEST SINGLE (PORTABLE) INDICATION: COMPARISON: None FINDINGS: AP view TUBES and L SWEETIE: None. LUNGS: Low lung volumes. Lungs are clear. There is no evid ence of pneumonia or pulmonary edema. PLEURA: No pleural effusion or pne umothorax. HEART AND MEDIASTINUM: The cardiomediastinal silhouette is unre markable. BONES AND SOFT TISSUES: No acute osseous lesion. Soft tissu es are unremarkable. UPPER ABDOMEN: No free air under the diaphragm. IMPRESSION: No acute thoracic abnormality. Low lung volumes. Signed by: Dr. Yenifer Acuña M.D. on 03/13/2017 8:56 PM Dictated By: YENIFER ACUÑA MD 55 Transcribed By: ORIANA on 03/13/172055 COPY TO: BAILEY ROWLEY NP
[2018-09-21] MEDS ORDERED: SODIUM CHLORIDE 0.9% 1000ML 1,000 ML IV STA (09:06)
[2018-09-21 09:43] LABS: BASOPHILS % 0.4 % (0.0-1.0); EOSINOPHILS # (AUTO) 0.3 (0.0-0.4); EOSINOPHILS % 3.6 % (0.0-6.0); HEMATOCRIT 42.5 % (34.2-44.1); HEMOGLOBIN 13.6 g/dL (12.0-16.0); LYMPHOCYTES % 34.6 % (18.0-39.1); MEAN CORPUSCULAR HEMOGLOBIN 29.1 pg (28-32); MEAN CORPUSCULAR VOLUME 90.8 fL (81-99); MONOCYTES # (AUTO) 0.5 (0.2-0.8); MONOCYTES % 5.3 % (4.4-11.3); NEUTROPHILS # (AUTO) 4.8 (2.1-6.9); NEUTROPHILS % 55.7 % (38.7-80.0); PLATELET COUNT 326 x10e3/uL (140-360); RED BLOOD COUNT 4.68 x10e6/uL (3.6-5.1); RED CELL DISTRIBUTION WIDTH 13.6 % (11.7-14.4)
[2018-09-21 09:49] LABS: CLARITY,URINE CLEAR (CLEAR); COLOR,URINE YELLOW (YELLOW); LEUKOCYTE ESTERASE ,URINE TRACE (NEGATIVE); NITRITE,URINE NEGATIVE (NEGATIVE)
[2018-09-21 09:50] LABS: BILIRUBIN,URINE NEGATIVE (NEGATIVE); KETONES,URINE TRACE (NEGATIVE); PROTEIN,URINE DIPSTICK NEGATIVE (NEGATIVE); URINE UROBILINOGEN 0.2 mg/dL (0.2 - 1)
[2018-09-21 10:02] LABS: ALANINE AMINOTRANSFERASE 16 IU/L (0-55); ALBUMIN 3.3 g/dL (3.5-5.0); ALBUMIN/GLOBULIN RATIO 0.9 (0.8-2.0); ALKALINE PHOSPHATASE 84 IU/L (40-150); AMYLASE 18 U/L (25-125); ANION GAP 13.6 mmol/L (8-16); BLOOD UREA NITROGEN 7 mg/dL (7-26); BUN/CREATININE RATIO 10 (6-25); CALCIUM 9.6 mg/dL (8.4-10.2); CARBON DIOXIDE 28 mmol/L (22-29); CHLORIDE 100 mmol/L (98-107); EST GLOMERULAR FILTRATION RATE > 60 ML/MIN (60-); GLUCOSE 92 mg/dL (74-118); LIPASE 12 U/L (8-78); POTASSIUM 3.6 mmol/L (3.5-5.1); SODIUM 138 mmol/L (136-145)
[2018-09-21 10:21] LABS: AMORPHOUS SEDIMENT,URINE MODERATE (FEW); BACTERIA,URINE FEW /HPF; EPITHELIAL CELLS,URINE FEW /LPF; WBC,URINE (MAN) 0-5 /HPF (0-5)
[2018-09-21] MEDS ORDERED: SODIUM CHLORIDE 0.9% 50ML 50 ML ONE (11:17)
[2018-09-21] MEDS ORDERED: IOPAMIDOL 370 MG/ML 200 ML INFUS..BTL INJ ONE (11:17)
--- NOTE | 2018-09-21 11:20 | Diagnostic Imaging Report ---
EXAM: CT of the abdomen and pelvis WITH contrast HISTORY: Abdominal pain, lower, 3 weeks, history of cholecystectomy, appendectomy, hysterectomy COMPARISON: None. TECHNIQUE: The abdomen and pelvis were scanned utilizing a multidetector helical scanner. Coronal and sagittal reformats are provided. PROTOCOL: Routine IV CONTRAST: 100 cc of Isovue-370. ORAL CONTRAST: Water RADIATION DOSE: Total DLP: 762.39 mGy*cm Estimated effective dose: (DLP x 0.015 x size factor) Dose modulation, iterative reconstruction, and/or weight based adjustment of the mA/kV was utilized to reduce the radiation dose to as low as reasonably achievable. COMPLICATIONS: None FINDINGS: LOWER THORAX: Mild atelectasis versus scarring, left greater than right. HEPATOBILIARY: Diffusely decreased attenuation, with more focal fatty infiltration adjacent to the falciform ligament. No mass. No biliary dilation. Metallic clips in the right upper quadrant of the abdomen are compatible with prior cholecystectomy. SPLEEN: No splenomegaly. PANCREAS: No focal masses or ductal dilatation. Diffuse parenchymal atrophy. ADRENALS: No discrete adrenal nodule. KIDNEYS/URETERS: No hydronephrosis, stones, or definite solid mass lesions. PELVIC ORGANS/BLADDER: The visualized pelvic organs appear unremarkable. GI TRACT: No dilation or wall thickening identified. PERITONEUM / RETROPERITONEUM: No free air or fluid. LYMPH NODES: No pathologically enlarged lymph node. VESSELS: Severe atherosclerotic vascular disease, from the distal abdominal aorta to the common iliac arteries, diffuse high-grade stenoses to occlusion. However, the external iliac, common femoral arteries and visualized portion just distal to the bifurcation opacify with contrast distal to this region.The more proximal celiac artery, superior mesenteric artery, and inferior mesenteric artery are patent. BONES: Mild age-indeterminate compression deformities of T11 and T12. Metallic inferior vena cava filter. SOFT TISSUES: Unremarkable. IMPRESSION: 1. Severe atherosclerotic vascular disease of the distal abdominal aorta and common iliac arteries. If symptoms may be attributable to this, advise consultation with vascular surgery or interventional radiology. 2. Mild age-indeterminate compression deformities of T11 and T12. 3. Hepatic steatosis. Signed by: Dr. Aron Stallings D.O., M.M.M. on 09/21/2018 11:17 AM
--- NOTE | 2018-09-21 13:10 | NUR ---
IV REMOVED BY PATIENT, BLEEDING CONTROLLED, PATIENT DECLINED DRESSING, IV CATH INTACT AFTER REMOVAL.
== END 2018-09-21 13:20 | disposition home or self-care (01) ==
LOC: ER 08:33
DX: R10.31 Right lower quadrant pain (principal); R10.32 Left lower quadrant pain; R11.2 Nausea with vomiting, unspecified; Z86.718 Personal history of other venous thrombosis and embolism
CPT/HCPCS: 36415; 74177; 80053; 81001; 82150; 83690; 85025; 87086; 87186; 99284; J7030; Q9967

== ENCOUNTER 2018-12-14 21:07 | Emergency (ER) | payer OTHER ==
[~2018-12-14] VITALS: Ht 160 cm; Wt 106.6 kg
--- OUTSIDE RECORDS SUMMARY | 2018-12-14 21:08 | XMS REPORT ---
Author [facility] Address Unknown Phone Unavailable Care Team Providers Care Residential Electrician Name Role Phone Juliana ARRINGTON Unavailable Unavailable Kit RIOS Unavailable Unavailable Sabino JHA Unavailable Unavailable Payers Payer Name Policy Type Policy Number Effective Date Expiration Date Problems This patient has no known problems. Allergies, Adverse Reactions, Alerts Allergy Name Allergy Type Status Severity Reaction(s) Onset Date Inactive Date Treating Clinician Comments ketorolac tromethamine DA Active SV 2018-10-27 00:00:00 ciprofloxacin HCl DA Active SV 2018-10-27 00:00:00 sumatriptan succinate DA Active SV 2018-10-27 00:00:00 tramadol HCl DA Active SV 2018-10-27 00:00:00 sumatriptan DA Active SV 2018-10-27 00:00:00 tazobactam DA Active SV 2018-10-27 00:00:00 cyclobenzaprine DA Active U 2018-10-27 00:00:00 piperacillin DA Active SV 2018-10-27 00:00:00 vancomycin DA Active SV 2018-10-27 00:00:00 ketorolac tromethamine DA Active SV 2018-04-24 00:00:00 [...] Atomic Results Result Comments BASIC METABOLIC PANEL 2018-10-27 04:43:00 SODIUM (test code=NA) 140 mmol/L 136-145 POTASSIUM (test code=K) 3.8 mmol/L 3.5-5.1 CHLORIDE (test code=CL) 106.0 mmol/L 98-107 CARBON DIOXIDE (test code=CO2) 27.0 mmol/L 21-32 ANION GAP (test code=GAP) 10.8 10-20 GLUCOSE (test code=GLU) 109 mg/dL 74-106 BLOOD UREA NITROGEN (test code=BUN) 7 mg/dL 7-18 GLOMERULAR FILTRATION RATE (test code=GFR) > 60 mL/min >=60 Estimated GFR by using Modified MDRD formula.Chronic kidney disease is defined as either kidney damageor GFR <60 mL/min/1.73 m2 for >3 months. CREATININE (test code=CREAT) 0.70 mg/dL 0.55-1.02 Note change in reference range due to change in reagent. BUN/CREATININE RATIO (test code=BUN/CREA) 10.0 10-20 CALCIUM (test code=CA) 9.4 mg/dL 8.5-10.1 ASKED LAB TO DRAWV.[facility] 10/27/18 [id number] 04:43:00* Test Item Value Reference Range Comments TROPONIN-I (test code=TROPI) <0.015 ng/mL 0-0.045 ASKED LAB TO DRAWV.[facility] 10/27/18 [id number] 04:43:00* Test Item Value Reference Range Comments ALCOHOL (test code=ALC) < 3 mg/dL 0.0-3.0 INTERPRETIVE DATA NOTE: POSITIVE SCREENING RESULTS SHOULD BE CONSIDERED PRESUMPTIVE.WHEN COLLECTED FOR MEDICAL PURPOSES ONLY. SPECIMEN WILL NOTBE COLLECTED BY CHAIN OF CUSTODY.IF A CONFIRMATION OF POSITIVE RESULTS IS DESIRED, ACONFIRMATION TEST MUST BE REQUESTED BY THE PHYSICIAN AT ANADDITIONAL CHARGE TO THE PATIENT. ASKED LAB TO DRAWV.[facility] 10/27/18 0252BASIC METABOLIC [id number] 04:23:00 * Test Item Value Reference Range Comments SODIUM (test code=NA) 140 mmol/L 136-145 POTASSIUM (test code=K) 3.8 mmol/L 3.5-5.1 CHLORIDE (test code=CL) 106.0 mmol/L 98-107 CARBON DIOXIDE (test code=CO2) mmol/L 21-32 ANION GAP (test code=GAP) 10-20 GLUCOSE (test code=GLU) mg/dL 74-106 BLOOD UREA NITROGEN (test code=BUN) mg/dL 7-18 GLOMERULAR FILTRATION RATE (test code=GFR) mL/min >=60 CREATININE (test code=CREAT) mg/dL 0.55-1.02 BUN/CREATININE RATIO (test code=BUN/CREA) 10-20 CALCIUM (test code=CA) mg/dL 8.5-10.1 ASKED LAB TO DRAWV.[facility] 10/27/18 [id number] 04:23:00* Test Item Value Reference Range Comments TROPONIN-I (test code=TROPI) ng/mL 0-0.045 ASKED LAB TO DRAWV.[facility] 10/27/18 [id number] 04:23:00* Test Item Value Reference Range Comments ALCOHOL (test code=ALC) mg/dL 0-3 ASKED LAB TO DRAWV.[facility] 10/27/18 0252URINALYSIS [id number] 03:29:00* Test Item Value Reference Range Comments UA COLOR (test code=COLU) COLORLESS YELLOW UA APPEARANCE (test code=APPU) CLEAR CLEAR UA GLUCOSE DIPSTICK (test code=DGLUU) NEGATIVE mg/dL NEGATIVE UA BILIRUBIN DIPSTICK (test code=BILU) NEGATIVE mg/dL NEGATIVE UA KETONE DIPSTICK (test code=KETU) NEGATIVE mg/dL NEGATIVE UA SPECIFIC GRAVITY (test code=SGU) 1.007 1.001-1.035 UA BLOOD DIPSTICK (test code=LUCRETIA) Negative mg/dL NEGATIVE UA PH DIPSTICK (test code=MICHAEL) 7.0 5.0-8.0 UA PROTEIN DIPSTICK (test code=PROU) NEGATIVE mg/dL NEGATIVE UA UROBILINIOGEN DIPSTICK (test code=URO) Normal mg/dL NEGATIVE UA NITRITE DIPSTICK (test code=JESENIA) NEGATIVE NEGATIVE UA LEUKOCYTE ESTERASE W REFLEX (test code=LEUUR) NEGATIVE Wilmer/uL NEGATIVE UA WBC (test code=WBCU) 0-5 per HPF 0-5 UA RBC (test code=RBCU) 0-3 #/HPF 0-5 UA EPITHELIAL CELLS (test code=EPIU) FEW per HPF FEW UA BACTERIA (test code=BACU) FEW #/HPF NONE Urine Source? Clean CatchDRUGS OF ABUSE SCREEN [id number] 03:29:00* Test Item Value Reference Range Comments URN COCAINE (test code=COCAURN) NEGATIVE <300 ng/mL URN CANNABINOIDS (test code=CANNABURN) NEGATIVE <50 ng/mL URN AMPHETAMINE (test code=AMPHETURN) NEGATIVE <1000 ng/mL URN BARBITURATE (test code=BARBITURN) NEGATIVE <200 ng/mL URN BENZODIAZEPINE (test code=BENZOURN) NEGATIVE <200 ng/mL URN OPIATES (test code=OPIATURN) POSITIVE <300 ng/mL This test provides only a preliminary test result. A morespecific alternate chemical method must be used in order toobtain a confirmed analytical result. Gas chromatography/mass spectrometry (GC/MS) is thepreferred confirmatory method. Other chemical confirmationmethods are available. Clinical consideration and professional judgment should be applied to any drug of abusetest result, particularly when preliminary positive resultsare used.Unconfirmed screening results must not be used fornon-medical purposes (e.g., employment testing, legaltesting). URN PHENCYCLIDINE (PCP) (test code=PHENCURN) NEGATIVE <25 ng/mL URN METHADONE (test code=METHAURN) NEGATIVE <300 ng/mL Urine Source? Clean CatchUR HCG [id number] 02:53:00* Test Item Value Reference Range Comments UR HCG QUAL (test code=HCGQLU) NEGATIVE This HCGQL test is NOT applicable for MALE patients.Check with nurse about probable order error.If Tumor Marker Test needed, nurse should order test "HCGTU"(Test #550.95664) URINALYSIS [id number] 02:50:00* Test Item Value Reference Range Comments UA COLOR (test code=COLU) COLORLESS YELLOW UA APPEARANCE (test code=APPU) CLEAR CLEAR UA GLUCOSE DIPSTICK (test code=DGLUU) NEGATIVE mg/dL NEGATIVE UA BILIRUBIN DIPSTICK (test code=BILU) NEGATIVE mg/dL NEGATIVE UA KETONE DIPSTICK (test code=KETU) NEGATIVE mg/dL NEGATIVE UA SPECIFIC GRAVITY (test code=SGU) 1.007 1.001-1.035 UA BLOOD DIPSTICK (test code=LUCRETIA) Negative mg/dL NEGATIVE UA PH DIPSTICK (test code=MICHAEL) 7.0 5.0-8.0 UA PROTEIN DIPSTICK (test code=PROU) NEGATIVE mg/dL NEGATIVE UA UROBILINIOGEN DIPSTICK (test code=URO) Normal mg/dL NEGATIVE UA NITRITE DIPSTICK (test code=JESENIA) NEGATIVE NEGATIVE UA LEUKOCYTE ESTERASE W REFLEX (test code=LEUUR) NEGATIVE Wilmer/uL NEGATIVE UA WBC (test code=WBCU) 0-5 per HPF 0-5 UA RBC (test code=RBCU) 0-3 #/HPF 0-5 UA EPITHELIAL CELLS (test code=EPIU) FEW per HPF FEW UA BACTERIA (test code=BACU) FEW #/HPF NONE Urine Source? Clean CatchDRUGS OF ABUSE SCREEN [id number] 02:50:00* Test Item Value Reference Range Comments URN COCAINE (test code=COCAURN) <300 ng/mL URN CANNABINOIDS (test code=CANNABURN) <50 ng/mL URN AMPHETAMINE (test code=AMPHETURN) <1000 ng/mL URN BARBITURATE (test code=BARBITURN) <200 ng/mL URN BENZODIAZEPINE (test code=BENZOURN) <200 ng/mL URN OPIATES (test code=OPIATURN) <300 ng/mL URN PHENCYCLIDINE (PCP) (test code=PHENCURN) <25 ng/mL URN METHADONE (test code=METHAURN) <300 ng/mL Urine Source? Clean CatchCBC W/AUTO [id number] 02:46:00* Test Item Value Reference Range Comments WHITE BLOOD CELL (test code=WBC) 10.3 K/mm3 4.5-12.5 RED BLOOD CELL (test code=RBC) 4.61 mill/mm3 3.7-5.2 HEMOGLOBIN (test code=HGB) 13.5 gram/dL 11.5-15.5 HEMATOCRIT (test code=HCT) 41.9 % 36.0-46.0 MEAN CELL VOLUME (test code=MCV) 90.9 fL 80-98 MEAN CELL HGB (test code=MCH) 29.3 picogram 27.0-33.0 MEAN CELL HGB CONCETRATION (test code=MCHC) 32.2 gram/dL 33.0-36.0 RED CELL DISTRIBUTION WIDTH (test code=RDW) 14.3 % 11.6-16.2 RED CELL DISTRIBUTION WIDTH SD (test code=RDW-SD) 47.6 fL 37.0-51.0 PLATELET COUNT (test code=PLT) 278 K/mm3 150-450 MEAN PLATELET VOLUME (test code=MPV) 10.3 fL 6.7-11.0 NEUTROPHIL % (test code=NT%) 50.8 % 39.0-69.0 IMMATURE GRANULOCYTE % (test code=IG%) 0.2 % 0.0-5.0 LYMPHOCYTE % (test code=LY%) 41.7 % 25.0-55.0 MONOCYTE % (test code=MO%) 5.7 % 0.0-10.0 EOSINOPHIL % (test code=EO%) 1.2 % 0.0-5.0 BASOPHIL % (test code=BA%) 0.4 % 0.0-1.0 NUCLEATED RBC % (test code=NRBC%) 0.0 % 0-0 NEUTROPHIL # (test code=NT#) 5.22 K/mm3 1.8-7.7 IMMATURE GRANULOCYTE # (test code=IG#) 0.02 x10 3/uL 0-0.03 LYMPHOCYTE # (test code=LY#) 4.27 K/mm3 1.0-5.0 MONOCYTE # (test code=MO#) 0.58 K/mm3 0-0.8 EOSINOPHIL # (test code=EO#) 0.12 K/mm3 0.0-0.5 BASOPHIL # (test code=BA#) 0.04 K/mm3 0.0-0.2 NUCLEATED RBC # (test code=NRBC#) 0.00 K/mm3 0.0-0.1 MANUAL DIFF REQUIRED (test code=MDIFF) NO CBC W/AUTO [id number] 02:45:00* Test Item Value Reference Range Comments WHITE BLOOD CELL (test code=WBC) K/mm3 4.5-12.5 RED BLOOD CELL (test code=RBC) mill/mm3 3.7-5.2 HEMOGLOBIN (test code=HGB) 13.5 gram/dL 11.5-15.5 HEMATOCRIT (test code=HCT) 41.9 % 36.0-46.0 MEAN CELL VOLUME (test code=MCV) [...] 0.0-0.5 BASOPHIL # (test code=BA#) K/mm3 0.0-0.2 - XR CHEST 1 [id number] 02:14:00 FAX: Marlon Downey Jr [phone] [place]: St: [facility] FAX: Samara Vega [phone] Name: JOSHUA WEAVER [facility] : 1965 Age/S: 52/F [address] [facility] Unit #: [id number] Loc: [place] [address] Phys: Samara Hastings MD Acct: [id number] Dis Date: Status: REG ER PHONE #: [phone] Exam Date: 10/27/2018 0159 FAX #: [phone] Reason: cp EXAMS: CPT CODE: [id number] XR CHEST 1 V 36239 EXAM: - XR CHEST 1 V HISTORY: Chest pain. COMPARISON: July 24, 2018. FINDINGS: Single AP view of the chest is provided. Heart size and vascularity are within normal limits. The lungs are clear of focal consolidation. No effusion, pneumothorax, or acute osseous abnormality. IMPRESSION: No radiographic evidence of acute cardiopulmonary process. at 0214 Reported and signed by: Charles George MD CC: Marlon Curry Jr, MD; Samara Hastings MD Technologist: Abiel grimm RT(R) Trnscrd Date/Time/By: 10/27/2018 (213) : By: [email or web address] Orig Print D/T: S: 10/27/2018 (021) PAGE [address] ABDOMEN/PELVIS [id number] 11:04:00 [place] [address] Patient Name: JOSHUA WEAVER MR #: [id number] : 1965 Age/Sex: 52/F Req #: [id number] Adm Physician: Ordered by: MADHAV ARRINGTON MD Report #: [id number] Location: ER Room/Bed: Procedure: [id number] C T/CT ABDOMEN/PELVIS W Exam Date: 09/21/18 Exam Time: 1030 REPORT STATUS: Signed EXAM: CT of the abdomen and pelvis WITH contrast HISTORY: Abdominal pain, low er, 3 weeks, history of cholecystectomy, appendectomy, hysterectomy COMPARIS ON: None. TECHNIQUE: The abdomen and pelvis were scanned utilizing a [facility] helical scanner. Coronal and sagittal reformats are provided. PROTOCOL: Routine IV CONTRAST: 100 cc of Isovue-370. ORAL CONTRAST: Water RADIATION DOSE: Total DLP: 762 .39 mGy*cm Estimated effective dose: (DLP x 0.015 x siz e factor) Dose modulation, iterative reconstruction, and/or weight based adjus tment of the mA/kV was utilized to reduce the radiation dose to as low as reas onably achievable. COMPLICATIONS: None FINDINGS: LOWER TH ORAX: Mild atelectasis versus scarring, left greater than right. HEPATOB ILIARY: Diffusely decreased attenuation, with more focal fatty infiltration adjacent to the falciform ligament. No mass. No biliary dilation. Metall ic clips in the right upper quadrant of the abdomen are compatible with prior cholecystectomy. SPLEEN: No splenomegaly. PANCREAS: No focal masses or ductal dilatation. Diffuse parenchymal atrophy. ADRENALS: No discrete adrena l nodule. KIDNEYS/URETERS: No hydronephrosis, stones, or definite solid mas s lesions. PELVIC ORGANS/BLADDER: The visualized pelvic organs appear u nremarkable. GI TRACT: No dilation or wall thickening identified. P ERITONEUM / RETROPERITONEUM: No free air or fluid. LYMPH NODES: No pathologica lly enlarged lymph node. VESSELS: Severe atherosclerotic vascular disease, fro m the distal abdominal aorta to the common iliac arteries, diffuse high-grade stenoses to occlusion. However, the external iliac, common femoral arteries an d visualized portion just distal to the bifurcation opacify with contrast dist al to this region.The more proximal celiac artery, superior mesenteric artery, and inferior mesenteric artery are patent. BONES: Mild age-indeterminate compression deformities of T11 and T12. Metallic inferior vena cava filter. SOFT TISSUES: Unremarkable. IMPRESSION: 1. Severe atherosclerotic va scular disease of the distal abdominal aorta and common iliac arteries. If sym ptoms may be attributable to this, advise consultation with vascular surgery o r interventional radiology. 2. Mild age-indeterminate compression deformities of T11 and T12. 3. Hepatic steatosis. Signed by: Dr. Aron Boyd D.O., M.M.M. on 09/21/2018 11:17 AM Dictated By: ARON BOYD DO Transcribed By: ORIANA on 09/21/181116 COPY TO: MADHAV ARRINGTON MD DUODENUM,[id number] 15:11:00 RUN DATE: 09/03/18 [facility] PAGE 1 RUN TIME: 1511 Specimen Inqui ry RUN USER: INTERFACE PATIENT: JOSHUA WEAVER ACCT #: [id number] LOC: JaeVISHALU U #: [id number] AGE/SX: 52/F ROOM: RE09/02/18[facility] DR: El Iqbal MD : [birth year] BED: DIS: STATUS: [facility] TLOC: SPEC #: [id number] RECD: 09/02/18 STATUS: RAZIA BOSE #: [id number] RASHEEDA: 09/02/[address] [facility] [address]: El Iqbal MD ENTERED: 09/02/18 SP TYPE: BX DUODEN OTHR DR: Marlon Gallegos Jr, MD ORDERED: GROSS COPIES TO: aMrlon Curry Jr, MD [address], [facility] [address] [place] [address] El Iqbal MD [address] [place] [address] PROCEDURES: GROSS (09/03/18-1310) TISSUES: 1. DUODENUM, NOS - 2nd PORTION BX 2. ANTRUM - BX CLINICAL HISTORY COLLECTION DATE: 09/02/2018 ABDOMI NAL PAIN, NAUSEA; VOMITING POST-OP DIAGNOSIS: GASTRITIS, ESOPHAGITIS, RULE OF SPRUE FINAL DIAGNOSIS Second portion of duodenum, biopsy: DUOD ENAL MUCOSA WITH UNREMARKABLE VILLOUS ARCHITECTURE AND MILD CHRONIC INF LAMMATION NO INTRAEPITHELIAL INFLAMMATION PRESENT NEGATIVE FOR MAL IGNANCY Gastric antrum, biopsy: COMPATIBLE WITH MILD REACTIVE GASTR OPATHY MILDLY INCREASED FIBROSIS WITHIN LAMINA PROPRIA NEGATIVE FO R INTESTINAL METAPLASIA NEGATIVE FOR HELICOBACTER ORGANISMS NEGATI VE FOR MALIGNANCY RRB/sm D CONTINU ED ON NEXT PAGE RUN DATE: 09/03/18 [facility] PAGE 2 RUN TIME: 1511 Specimen Inquiry RUN USER: INTERFACE SPEC #: [id number] DOC IENT: JOSHUA WEAVER #[id number] (Continued) FINAL DIAGNOSIS (Continued) [phone] MACROSCOP IC The first specimen is received in formalin, labeled with the patient's nam e, identified as "2nd portion duodenum rule out sprue". It consists of ramsay bi opsy tissue measuring 0.6 cm in aggregate, submitted as (1). The second specimen is received in formalin, labeled with the patient's name, identified as "antrum bx". It consists of ramsay biopsy tissue measuring 0.6 cm in aggregat e, submitted as (2). An H E and a Giemsa stain will be prepared. GROSS PE RFORMED AT [facility] [address] [place] [address] (p)[phone] MICROSCOPIC All of the stains, including any controls performed, stain appropriately. MICROSCOPIC PERFORMED AT [facility] [address] [place] [address] (p)[phone] PERFORM[address] SITE Diagnosis performed at: [facility], [place] [address] [facility] [address] --------- --- Signed SIGNATURE ON FILE Ricki Pitts MD 09/03/18 1511 END OF REPORT BASIC METABOLIC [id number] 17:43:00* Test Item Value Reference Range Comments SODIUM (test code=NA) 138 mmol/L 136-145 POTASSIUM [...] (test code=CA) 9.1 mg/dL 8.5-10.1 CBC W/AUTO [id number] 17:12:00* Test Item Value Reference Range Comments [...] (test code=NRBC#) 0.00 K/mm3 0.0-0.1 CBC W/AUTO [id number] 17:10:00* Test Item Value Reference Range Comments [...] 0.0-0.5 BASOPHIL # (test code=BA#) K/mm3 0.0-0.2 [id number] 10:27:00* Test Item Value Reference Range Comments GLUBED (test code=GLUBED) 123 MG/DL 70-110 Performed by certified process operator at [facility] URINALYSIS [id number] 12:19:00* Test Item Value Reference Range Comments [...] code=SQU) 0-5 /HPF NONE SEEN UA CULT [id number] 12:19:00* Test Item Value Reference Range Comments UA CULTURE NEEDED? (test code=UACULT) NO, WBC<10 Criteria Culture Chk Criteria not met, Urine Culture cancelled. LACTIC ACID [id number] 12:16:00* Test Item Value Reference Range Comments LACTIC ACID POC (test code=LACTP) 1.3 MMOL/L 0.90-1.70 Performed by certified process operator at [facility] - XR CHEST 1 [id number] 12:10:00 FAX: Woody Siddiqui DO [phone] [place]: St: REG Name: JOSHUA MONTEMAYOR [facility] : [birth year] Age/S: 52/F [address] [place] [address] Unit #: [id number] Loc: [place] [address] Phys: Woody Sy DO Acct: [id number] Dis Date: Status: REG ER PHONE #: [phone] Exam Date: 07/24/2018 1208 FAX #: [phone] Reason: leukocytosis EXAMS: CPT CODE: [id number] XR CHEST 1 V 21337 EXAM: CHEST SINGLE VIEW HISTORY: 52-year-old female with leukocytosis COMPARISON: Chest radiograph 04/24/2018 FINDINGS: The lungs are clear. The cardiome diastinal silhouette is normal for projection. No acute osseous abnormali ty. IMPRESSION: 1. No acute cardiopulmonary ab normality. SL: [id number] Electronica lly Signed by Chun Calles on 07/24/2018 at 1210 Repo rted and signed by: Merced Calles M.D. CC: Woody Sy DO Technologist: Markus Shook RT(R) [facility] Date/Time/By: 07/24/2018 (1210) : By: [email or web address] Orig Print D/T: S: 07/24/2018 (8643) PAG E 1 Signed Report BASIC METABOLIC [id number] 11:10:00* Test Item Value Reference Range Comments [...] 0.6-1.3 CALCIUM (test code=CA) 8.7 mg/dL 8.0-10.5 [id number] 11:10:00* Test Item Value Reference Range Comments TROPONIN-I (test code=TROPI) < 0.015 ng/mL 0.000-0.045 Negative: <=0.045 Positive: >=0.046 Correlation with serial results, other cardiac markers andclinical findings is necessary to determine the clinicalsignificance of this result. Results using different methodologies should not be comparedto one another as quantitative results may vary by method. - CT HEAD/BRAIN W/O [id number] 10:46:00 Name: JOSHUA WEAVER [facility] : 1965 Age/S: 52 / F [address] [place] [address] Blvd Unit #: [id number] Loc: [place] [address] Phys: YossiWoody Acct: [id number] Dis Date: Status: REG ER PHONE #: [phone] Exam Date: 07/24/2018 1036 FAX #: [phone] Reason: LEFT SIDE WEAKNESS EXAMS: CPT CODE: [id number] CT HEAD/BRAIN W/O CONT [id number] CT head without contrast 07/24/2018 HISTORY: Code [...] at 10:45 AM on 07/24/2018. SL: CL [id number] at 1046 Reported and signed by: Chetan Monge M.D. CC: Woody Sy DO Technologist:RT Janett(R)(CT) CTDI: DLP: Trnscb Date/Time: 07/24/2018 (1046) [email or web address] Orig Print D/T: S: 07/24/2018 (1048) CTDI: DLP: PAGE 1 Signed Report PROTHROMBIN [id number] 10:43:00* Test Item Value Reference Range Comments [...] Infarction (to prevent recurrent infarct). THROMBOPLASTIN TIME [id number] 10:43:00* Test Item Value Reference Range Comments THROMBOPLASTIN TIME PARTIAL (test code=PTT) 24.8 Seconds 25.0-39.5 Therapeutic Range: 61.8-83.8 Sec Effective 07/15/2013 CBC W/O [id number] 10:40:00* Test Item Value Reference Range Comments [...] (test code=MPV) 10.1 fL 7.0-9.0 B-TYPE NATRIURETIC [id number] 02:15:00* Test Item Value Reference Range Comments B-TYPE NATRIURETIC PEPTIDE (test code=BNP) 40.87 pgram/mL 0-100 BASIC METABOLIC [id number] 01:48:00* Test Item Value Reference Range Comments [...] (test code=CA) 8.6 mg/dL 8.5-10.1 HEPATIC FUNCTION [id number] 01:48:00* Test Item Value Reference Range Comments [...] reference range due to change in reagent. [id number] 01:48:00* Test Item Value Reference Range Comments LIPASE (test code=LIP) 58 U/L 73.0-393.0 BASIC METABOLIC [id number] 01:40:00* Test Item Value Reference Range Comments [...] CALCIUM (test code=CA) mg/dL 8.5-10.1 HEPATIC FUNCTION [id number] 01:40:00* Test Item Value Reference Range Comments TOTAL PROTEIN (test code=PROT) gram/dL 6.4-8.2 ALBUMIN (test code=ALB) g/dL 3.4-5.0 GLOBULIN (test code=GLOB) gram/dL 2.7-4.2 ALBUMIN/GLOBULIN RATIO (test code=A/G) 0.75-1.50 BILIRUBIN TOTAL (test code=BILT) mg/dL 0.0-1.0 BILIRUBIN DIRECT (test code=BILD) mg/dL 0.0-0.20 SGOT/AST (test code=AST) IUnit/L 15-37 SGPT/ALT (test code=ALT) IUnit/L 12-78 ALKALINE PHOSPHATASE TOTAL (test code=ALKP) IUnit/L 45-117 [id number] 01:40:00* Test Item Value Reference Range Comments LIPASE (test code=LIP) U/L 73.0-393.0 URINALYSIS [id number] 01:31:00* Test Item Value Reference Range Comments [...] per LPF NONE-FEW Urine Source? Clean CatchURINALYSIS [id number] 01:26:00* Test Item Value Reference Range Comments [...] per HPF 0-5 Urine Source? Clean CatchPROTHROMBIN [id number] 23:09:00* Test Item Value Reference Range Comments [...] PATIENT ON ANTICOAGULANTS? YLIST ANTICOAGULANTS XARELTOTHROMBOPLASTIN TIME [id number] 23:09:00* Test Item Value Reference Range Comments THROMBOPLASTIN TIME PARTIAL (test code=PTT) 31.9 seconds 25.0-36.5 IS PATIENT ON ANTICOAGULANTS? YLIST ANTICOAGULANTS XARELTOCBC W/O [id number] 22:56:00* Test Item Value Reference Range Comments [...] code=MPV) 10.1 fL 6.7-11.0 CT CERVICAL SPINE [id number] 23:02:00 [facility] [address] [place] [address] Patient Name: JOSHUA WEAVER MR #: [id number] : 1965 Age/Sex: 52/F Req #: [id number] Adm Physician: Ordered by: PELON RIOS MD Report #: [id number] Location: ER Room/Bed: Procedure: [id number] CT/CT CERVICAL SPINE WO Exam Date: 03/29/18 [...] COPY TO: PELON RIOS MD CT BRAIN [id number] 23:02:00 [place] [address] Patient Name: JOSHUA WEAVER MR #: [id number] : 1965 Age/Sex: 52/F Req #: [id number] Adm Physician: Ordered by: PELON RIOS MD Report #: [id number] Location: ER Room/Bed: Procedure: [id number] CT/CT BRAIN WO Exam Date: Exam Time: [...] RIOS MD CHEST SINGLE (NOT PORTABLE)2018-03-29 22:29:00 [place] [address] Patient Name: JOSHUA WEAVER MR #: [id number] : 1965 Age/Sex: 52/F Req #: [id number] Adm Physician: Ordered by: PELON RIOS MD Report #: [id number] Location: Room/Bed: Procedure: DX/CHEST SINGLE (NOT PORTABLE) Exam Date: 03/29/18 Exam Time: [address] ATUS: Signed EXAM: CHEST SINGLE (NOT [...] O: PELON RIOS MD PELVIS AP 1-2 [id number] 22:28:00 [place] [address] Patient Name: JOSHUA WEAVER MR #: [id number] : 1965 Age/Sex: 52/F Req #: [id number] Adm Physician: Ordered by: PELON RIOS MD Report #: [id number] Location: ER Room/Bed: Procedure: DX/PELVIS AP 1-2 VIEWS Exam D ate: [...] PELON RIOS MD SP LUMBAR AP LATERAL [id number] 22:27:00 [place] [address] Patient Name: JOSHUA WEAVER MR #: [id number] : 1965 Age/Sex: 52/F Req #: [id number] Adm Physician: Ordered by: PELON RIOS MD Report #: [id number] Location: ER Room/Bed: Procedure: 4995-4637 DX/SP LUMBAR AP LATERAL 2-3V WS Exam [...] By: FERCHO MCDONNELL MD 27 Transcribed By: STEVE DE LEON on 03/29/182227 COPY TO: PELON ROIS MD ANKLE 3 + VIEWS [id number] 00:41:00 [place] [address] Patient Name: JOSHUA WEAVER MR #: [id number] : 1965 Age/Sex: 52/F Req #: [id number] Adm Physician: Ordered by: KATE JHA MD Report #: [id number] Location: ER Room/Bed: Procedure: 3060-2865 DX/ANKLE 3 + VIEWS RIGH T Exam Date: 01/31/18 Exam Time: 2340 REPORT [...] TO: KATE MARCELO MD CHEST SINGLE (PORTABLE) [place] [address] Patient Name: JOSHUA WEAVER MR #: [id number] : 1965 Age/Sex: 51/F Req #: [id number] Adm Physician: Ordered by: BAILEY JACKMAN NP Report #: [id number] Location: ER Room/Bed: Procedure: [id number] DX/CHEST SINGLE (PORTABLE) Exam Date: 03/13/17 Exam Time: 2018 REPORT STA TUS: Signed EXAMINATION: CHEST SINGLE [...]
--- NOTE | 2018-12-14 22:47 | Diagnostic Imaging Report ---
Exam: Right shoulder 2 views History: Pain Comparison: None. Findings: No fracture or malalignment. Joint spaces preserved. No abnormal soft tissue calcification or soft tissue defect. Impression: No acute osseous abnormality Signed by: Dr. Chano Moncada M.D. on 12/14/2018 10:44 PM
--- NOTE | 2018-12-14 22:58 | Diagnostic Imaging Report ---
Exam: Lumbar spine AP lateral oblique History: Back pain Comparison: March 29, 2018 Findings: No fracture or malalignment. Degenerative endplate change without narrowing. Mild facet arthrosis L5-S1. No abnormal soft tissue calcification or soft tissue defect. IVC filter. Impression: No acute osseous abnormality Signed by: Dr. Chano Moncada M.D. on 12/14/2018 10:55 PM
[2018-12-14] MEDS ORDERED: SOMA350 MG PO (23:23)
== END 2018-12-14 23:38 | disposition home or self-care (01) ==
LOC: ER 21:07
DX: M54.5 Low back pain (principal); M25.511 Pain in right shoulder; S39.012A Strain of muscle, fascia and tendon of lower back, initial encounter; V43.52XA Car driver injured in collision with other type car in traffic accident, initial encounter; Y92.488 Other paved roadways as the place of occurrence of the external cause; J44.9 Chronic obstructive pulmonary disease, unspecified; F41.9 Anxiety disorder, unspecified; E78.5 Hyperlipidemia, unspecified; Z86.718 Personal history of other venous thrombosis and embolism; F17.210 Nicotine dependence, cigarettes, uncomplicated
CPT/HCPCS: 72110; 99283

== ENCOUNTER 2018-12-18 12:21 | Emergency (ER) | payer OTHER ==
[~2018-12-18] VITALS: Ht 160 cm; Wt 106.6 kg
[~2018-12-18 12:21] MED LIST changes: +SOMA350 MG PO
--- NOTE | 2018-12-18 14:48 | Diagnostic Imaging Report ---
EXAMINATION: CHEST 2 VIEWS INDICATION: ^2 VIEW TO R/O RIGHT RIB FX ^[id number] ^[id number] COMPARISON: 03/13/2017 FINDINGS: PA and lateral views TUBES and LINES: None. LUNGS: Lungs are well inflated. There is no evidence of pneumonia or pulmonary edema. Minimal right base subsegmental atelectasis. PLEURA: No pleural effusion or pneumothorax. HEART AND MEDIASTINUM: The cardiomediastinal silhouette is unremarkable. BONES AND SOFT TISSUES: No acute osseous lesion. Soft tissues are unremarkable. UPPER ABDOMEN: No free air under the diaphragm. IMPRESSION: No acute thoracic abnormality. No definite evidence of displaced right-sided rib fractures. If there is high clinical concern, consider obtaining additional views. Signed by: Dr. Swapnil Pavon MD on 12/18/2018 2:45 PM
--- NOTE | 2018-12-18 15:23 | Diagnostic Imaging Report ---
EXAMINATION: RIBS UNILAT W/CXR INDICATION: ^left rib series pls ^[id number] ^[id number] COMPARISON: Same day chest x-ray. FINDINGS: TUBES and LINES: None. LUNGS: Lungs are well inflated. Lungs are clear. There is no evidence of pneumonia or pulmonary edema. PLEURA: No pleural effusion or pneumothorax. HEART AND MEDIASTINUM: The cardiomediastinal silhouette is unremarkable. BONES AND SOFT TISSUES: No acute osseous lesion. Soft tissues are unremarkable. UPPER ABDOMEN: No free air under the diaphragm. IVC filter and right upper quadrant surgical clips are seen. IMPRESSION: No acute thoracic abnormality. No evidence of left-sided displaced rib fracture. Signed by: Dr. Swapnil Pavon MD on 12/18/2018 3:20 PM
== END 2018-12-18 15:45 | disposition home or self-care (01) ==
LOC: ER 12:21
DX: S20.212A Contusion of left front wall of thorax, initial encounter (principal); W01.0XXA Fall on same level from slipping, tripping and stumbling without subsequent striking against object, initial encounter; Y92.008 Other place in unspecified non-institutional (private) residence as the place of occurrence of the external cause; K21.9 Gastro-esophageal reflux disease without esophagitis; F41.9 Anxiety disorder, unspecified; E78.5 Hyperlipidemia, unspecified; J44.9 Chronic obstructive pulmonary disease, unspecified; G89.29 Other chronic pain; F17.210 Nicotine dependence, cigarettes, uncomplicated; Z86.718 Personal history of other venous thrombosis and embolism
CPT/HCPCS: 71046; 71101; 99283

== ENCOUNTER 2019-08-20 15:32 | Inpatient (IN) | payer OTHER ==
[~2019-08-20] VITALS: Ht 160 cm; Wt 106.6 kg
[2019-08-20] MEDS ORDERED: SODIUM CHLORIDE 0.9% 1000ML 1,000 ML IV STA (16:49)
[2019-08-20] MEDS ORDERED: MORPHINE SULFATE 2 MG/ML SYR 1ML IV STA (17:06)
[2019-08-20] MEDS: MEROPENEM 1GM 100 ML IV SCH (17:09)
[2019-08-20] MEDS ORDERED: ONDANSETRON HCL INJ 2MG/ML 2ML 2 MG/ML VIAL IV PRN (17:15)
--- NOTE | 2019-08-20 17:26 | Diagnostic Imaging Report ---
EXAMINATION: CHEST SINGLE (PORTABLE) INDICATION: ABD PAIN COMPARISON: 12/18/2018 FINDINGS: AP view TUBES and LINES: None. LUNGS: Lungs are well inflated. There is no evidence of pneumonia or pulmonary edema. PLEURA: No pleural effusion or pneumothorax. HEART AND MEDIASTINUM: The cardiomediastinal silhouette is unremarkable. BONES AND SOFT TISSUES: No acute osseous lesion. Soft tissues are unremarkable. UPPER ABDOMEN: No free air under the diaphragm. IMPRESSION: No acute thoracic abnormality. Signed by: Te Fitzgerald MD on 08/20/2019 5:24 PM
[2019-08-20] MEDS: LINEZOLID 600 MG/D5W 300ML 300 ML IV SCH (17:35)
[2019-08-20 17:57] LABS: BASOPHILS % 0.4 % (0.0-1.0); EOSINOPHILS # (AUTO) 0.3 (0.0-0.4); EOSINOPHILS % 2.9 % (0.0-6.0); HEMOGLOBIN 10.6 g/dL (12.0-16.0); LYMPHOCYTES # (AUTO) 2.4 (1.0-3.2); MEAN CORPUSCULAR HEMOGLOBIN 27.2 pg (28-32); MEAN CORPUSCULAR HGB CONC 30.3 g/dL (31-35); MEAN CORPUSCULAR VOLUME 89.7 fL (81-99); MONOCYTES # (AUTO) 0.6 (0.2-0.8); MONOCYTES % 6.3 % (4.4-11.3); NEUTROPHILS # (AUTO) 5.8 (2.1-6.9); NEUTROPHILS % 64.2 % (38.7-80.0); PLATELET COUNT 432 x10e3/uL (140-360); RED CELL DISTRIBUTION WIDTH 15.4 % (11.7-14.4)
[2019-08-20 18:12] LABS: BILIRUBIN,URINE NEGATIVE (NEGATIVE); CLARITY,URINE SL CLOUDY (CLEAR); COLOR,URINE YELLOW (YELLOW); KETONES,URINE NEGATIVE (NEGATIVE); LEUKOCYTE ESTERASE ,URINE NEGATIVE (NEGATIVE); NITRITE,URINE NEGATIVE (NEGATIVE); PROTEIN,URINE DIPSTICK NEGATIVE (NEGATIVE); URINE UROBILINOGEN 0.2 mg/dL (0.2 - 1)
[2019-08-20 18:14] LABS: ALANINE AMINOTRANSFERASE < 6 IU/L (0-55); ALBUMIN 2.8 g/dL (3.5-5.0); ALBUMIN/GLOBULIN RATIO 0.6 (0.8-2.0); ALKALINE PHOSPHATASE 146 IU/L (40-150); ANION GAP 11.1 mmol/L (8-16); BLOOD UREA NITROGEN 7 mg/dL (7-26); BUN/CREATININE RATIO 11 (6-25); CALCIUM 9.5 mg/dL (8.4-10.2); CARBON DIOXIDE 28 mmol/L (22-29); CHLORIDE 101 mmol/L (98-107); CREATINE KINASE 17 IU/L (29-168); CREATININE, SERUM 0.61 mg/dL (0.57-1.11); EST GLOMERULAR FILTRATION RATE > 60 ML/MIN (60-); GLUCOSE 104 mg/dL (74-118); MAGNESIUM 1.5 MG/DL (1.3-2.1); POTASSIUM 4.1 mmol/L (3.5-5.1); SODIUM 136 mmol/L (136-145)
[2019-08-20 18:16] LABS: INR 0.99; PROTHROMBIN TIME 13.7 seconds (11.9-14.5)
[2019-08-20 18:17] LABS: PARTIAL THROMBOPLASTIN TIME 35.9 seconds (23.8-35.5)
--- NOTE | 2019-08-20 18:26 | NUR ---
Pt to CT scan via stretcher
[2019-08-20 18:34] LABS: BACTERIA,URINE MODERATE /HPF; EPITHELIAL CELLS,URINE FEW /LPF
[2019-08-20] MEDS ORDERED: PROMETHAZINE HC25 M1 (18:44)
[2019-08-20] MEDS ORDERED: DIAZEPAM10 MG (18:44)
[2019-08-20] MEDS ORDERED: BUTALB-ACETAMI1 EAC2 (18:44)
[2019-08-20] MEDS ORDERED: TEMAZEPAM15 MG (18:44)
[2019-08-20] MEDS ORDERED: METOPROLOL SUCC25 MG (18:44)
[2019-08-20] MEDS ORDERED: LIDOCAINE1 EA (18:44)
[2019-08-20] MEDS ORDERED: ATORVASTATIN CA40 MG (18:44)
[2019-08-20] MEDS ORDERED: HYDROCODON-ACE1 EAC9 (18:44)
[2019-08-20] MEDS ORDERED: HYDROCODON-ACE1 EA12 (18:44)
[2019-08-20] MEDS ORDERED: PROAIR HFA INH8.5 GM (18:44)
[2019-08-20] MEDS ORDERED: RANITIDINE HCL300 MG (18:44)
[2019-08-20] MEDS ORDERED: GABAPENTIN600 MG (18:44)
[2019-08-20] MEDS: SODIUM CHLORIDE 0.9% 1000ML 1,000 ML IV SCH (19:50)
--- NOTE | 2019-08-20 19:55 | Diagnostic Imaging Report ---
EXAM: CT Abdomen and Pelvis WITH contrast INDICATION: ^S/P AO-BIFEM 08/14, INFECTED MIDLINE INCISION, ABD PAIN COMPARISON: None. TECHNIQUE: Abdomen and pelvis were scanned utilizing a multidetector helical scanner from the lung base to the pubic symphysis after administration of IV contrast. Coronal and sagittal reformations were obtained. Dose modulation, iterative reconstruction, and/or weight based adjustment of the mA/kV was utilized to reduce the radiation dose to as low as reasonably achievable. Routine protocol was performed. Scan was performed when during portal venous phase. IV CONTRAST: 150 mL of Omnipaque 300 ORAL CONTRAST: Water COMPLICATIONS: None RADIATION DOSE: Total DLP: 810.74 mGy-cm Estimated effective dose: (DLP x 0.015 x size factor) mSv CTDIvol has been reviewed. It is below the limits set by the Radiation Protocol Committee (RPC). FINDINGS: LINES and TUBES: None. LOWER THORAX: Unremarkable HEPATOBILIARY: No focal hepatic lesions. No biliary ductal dilation. GALLBLADDER: There are cholecystectomy clips. SPLEEN: No splenomegaly. PANCREAS: There is fatty infiltration of the pancreas. ADRENALS: No adrenal nodules KIDNEYS/URETERS: Kidneys enhance symmetrically. No hydronephrosis. No cystic or solid mass lesions. No stones. GI TRACT: No abnormal distention, wall thickening, or evidence of bowel obstruction. PELVIC ORGANS/BLADDER: Unremarkable. LYMPH NODES: No lymphadenopathy. VESSELS: There is severe atherosclerotic disease in the aorta and major arterial branches. There is an IVC filter in place PERITONEUM / RETROPERITONEUM: No free air or fluid. BONES: There are degenerative changes in the lumbar spine. SOFT TISSUES: Status post repair of bilateral inguinal hernias with marked stranding likely postoperative or infectious. Additionally there is stranding of ventral subcutaneous fat. No focal abscess. Bilateral gluteal calcified granuloma. IMPRESSION: Stranding of the abdominal and pelvic wall as described. No focal abscess. Signed by: Te Fitzgerald MD on 08/20/2019 7:53 PM
[2019-08-20] MEDS ORDERED: IOPAMIDOL 370 MG/ML 200 ML INFUS..BTL INJ ONE (20:15)
[2019-08-20] MEDS: HYDROCODONE/APAP 7.5MG-325MG 1 EA TAB PO PRN (20:56)
[2019-08-21] VITALS (7 sets, daily range): BP systolic 105–151; BP diastolic 56–73
--- NOTE | 2019-08-21 00:15 | Consultation ---
DATE OF CONSULTATION: 08/20/2019 REASON FOR CONSULTATION: Abdominal pain. HISTORY OF PRESENT ILLNESS: This is a 53-year-old lady with a long history of smoking. 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 She did well and went home. She has been intermittently compliant with her medical regimen. Initially, she had a slight superficial separation of the inferior portion of her abdominal wound. This has progressed somewhat today and there is some surrounding erythema. No fevers or chills. The patient has had persistent pain and sees multiple physicians for pain medications. No active cardiac problems. REVIEW OF SYSTEMS: GENERAL: Positive for malaise. NEUROLOGIC: Negative for focal weakness in the extremities or dysarthria. HEENT: Negative for decreased vision or decreased hearing. CARDIAC: Negative for chest pain or palpitation. PULMONARY: Negative for wheezing or cough. ABDOMEN: Positive above. HEMATOLOGIC: Negative for clotting or bleeding. INFECTIOUS: Negative for fevers or chills. MUSCULOSKELETAL: Negative for joint swelling. ONCOLOGIC: Negative for malignancy. PSYCHIATRIC: Positive for smoking. PHYSICAL EXAMINATION: GENERAL: Somewhat overweight lady, lying flat in bed in the emergency room. VITAL SIGNS: Blood pressure 130/70, pulse 85 and regular, respirations 16 and unlabored. NECK: Supple and nontender. No JVD. CARDIAC: Regular rate and rhythm. There is normal S1, S2. There is no S3, S4, rub, or murmur. LUNGS: Clear to auscultation and percussion bilaterally. ABDOMEN: Globoid. There is a midline laparotomy scar. It is well-healed above the umbilicus. Below the umbilicus, there is some surrounding erythema and superficial wound separation. There is no drainage at present. It is not foul smelling. The surrounding areas are not tender. BACK: No CVA tenderness. No muscular spasm. EXTREMITIES: Both groin wounds are well healed. There are bilateral palpable femoral pulses. No pulses palpable at the DP or PT. Extremities are warm and well perfused bilaterally. SKIN: There is erythema surrounding the inferior aspect of the abdominal wound, but otherwise no erythema or rashes. MUSCULOSKELETAL: Full range of motion of all joints. No joint swelling. NEUROLOGIC: Cranial nerves 2-12 intact. Sensation intact to light touch and pinprick bilaterally. LYMPHATIC: Negative for cervical, clavicular, femoral adenopathy. LABORATORIES: Pending. PAST MEDICAL HISTORY: Positive for smoking and peripheral vascular disease. MEDICATIONS: See MAR. ALLERGIES: NONE KNOWN. SOCIAL HISTORY: Positive for continued smoking. Negative for IV drugs. FAMILY HISTORY: Negative for early CAD. IMPRESSION: We will admit for wound care. We will initiate saline wet-to-dry dressings and the IV antibiotic therapy. We will also obtain abdominal CT scan. MD LOTTIE SeverinoL/MODL /[id number]
--- NOTE | 2019-08-21 00:55 | NUR ---
Patient placed on hospital bed at this time.
[2019-08-21] MEDS: MEROPENEM 1GM 100 ML IV SCH ×3 (01:03→20:37)
--- NOTE | 2019-08-21 01:17 | NUR ---
Abdominal wound reassessed at this time and new dressing placed. Patient tolerated dressing change well. Small amount of exudate noted at this time. Will continue to monitor.
[2019-08-21] MEDS: HYDROCODONE/APAP 7.5MG-325MG 1 EA TAB PO PRN ×4 (03:26→22:49)
[2019-08-21] MEDS: SODIUM CHLORIDE 0.9% 1000ML 1,000 ML IV SCH ×3 (03:26→20:38)
[2019-08-21] MEDS: LINEZOLID 600 MG/D5W 300ML 300 ML IV SCH ×2 (04:41→16:01)
[2019-08-21 05:19] LABS: BASOPHILS % 0.5 % (0.0-1.0); EOSINOPHILS # (AUTO) 0.2 (0.0-0.4); EOSINOPHILS % 3.4 % (0.0-6.0); LYMPHOCYTES # (AUTO) 1.8 (1.0-3.2); LYMPHOCYTES % 27.5 % (18.0-39.1); MEAN CORPUSCULAR HEMOGLOBIN 26.9 pg (28-32); MEAN CORPUSCULAR VOLUME 92.8 fL (81-99); MONOCYTES # (AUTO) 0.5 (0.2-0.8); MONOCYTES % 7.8 % (4.4-11.3); NEUTROPHILS % 60.5 % (38.7-80.0); PLATELET COUNT 333 x10e3/uL (140-360); RED BLOOD COUNT 3.34 x10e6/uL (3.6-5.1); RED CELL DISTRIBUTION WIDTH 15.5 % (11.7-14.4)
[2019-08-21 05:36] LABS: ALANINE AMINOTRANSFERASE < 6 IU/L (0-55); ALBUMIN 2.2 g/dL (3.5-5.0); ALBUMIN/GLOBULIN RATIO 0.6 (0.8-2.0); ALKALINE PHOSPHATASE 109 IU/L (40-150); ANION GAP 9.1 mmol/L (8-16); BLOOD UREA NITROGEN 5 mg/dL (7-26); BUN/CREATININE RATIO 9 (6-25); CALCIUM 8.3 mg/dL (8.4-10.2); CARBON DIOXIDE 27 mmol/L (22-29); CHLORIDE 105 mmol/L (98-107); CREATININE, SERUM 0.53 mg/dL (0.57-1.11); EST GLOMERULAR FILTRATION RATE > 60 ML/MIN (60-); GLUCOSE 95 mg/dL (74-118); POTASSIUM 4.1 mmol/L (3.5-5.1); SODIUM 137 mmol/L (136-145)
--- NOTE | 2019-08-21 06:56 | NUR ---
Report to SONIA Beebe.,
--- NOTE | 2019-08-21 11:40 | NUR ---
WOUND CARE CONSULT FOR 53 YO FEMALE HX OF NONHEALING SURGICAL WOUND 2MOS POST AORTOBIFEMORAL GRAFTING LAVON 17 ON CONSERVATIVE PUP STATUS AND INTERVENTIONS AND MAY BE MANAGED ON VISCO MATTRESS LABS: WBC-6.55 HGB_9 GLUCOSE-95 SKIN ASSESSMENT COMPLETE PATIENT PRESENTS WITH NONHEALING SURGICAL WOUND TO LOWER ABDOMEN MEASURES 12.5 CMX 2CM X2CM UNDERMINING AT 10 -11 OCLOCK = 2CM RECOMMENDATIONS: NURSING TO CONTINUE TO MAINTAIN MODERATE PUP STATUS AND INTERVENTIONS AND VISCO MATTRESS NURSING TO CONTINUE TO ASSIST PATIENT OUT OF BED FOR MEALS AND MUCH TOLERATED NURSING TO CONTINUE TO ASSIST PATIENT NEEDED WITH MEALS AND NUTRITIONAL SUPPLEMENTS TO ENSURE PROPER REQUIREMENTS FOR HEALING NURSING TO CONTINUE TO OFFLOAD FEET AND HEELS NEEDED WITH PILLOW SUSPENSION WHEN IN BED NURSING TO CLEAN LOWER ABDOMINAL NONHEALING SURGICAL WOUND WITH NORMAL SALINE DAILY AND APPLY SANTYL OINTMENT AND LIGHTLY PACK UNDERMINING WITH NADYA COVER WOUND WITH 4X4 AND ABD PAD SECURE WITH FOAM TAPE Addendum: 08/21/19 at 1152 by Malcolm Gan RN Amended: Links added.
--- NOTE | 2019-08-21 12:45 | NUR ---
PT RECEIVED FROM ER. AAOX4. EDUCATED PT ABOUT FALL PRECAUTIONS. PT VERBALIZED UNDERSTANDING. CALL LIGHT WITH IN EASY REACH. INSTRUCTED PT TO USE CALL LIGHT FOR ALL THE NEEDS. BED IS LOW AND LOCKED. SIDE RAILS X2. PT HAS ABDOMINAL NON HEALING WOUNDS, WOUND CARE SAW THE PT AT ER, ALSO DRESSING CHANGED BY INDEPENDENT FILM MAKER PER THE ER REPORT. PT PRESENT WITH ABDOMINAL DRESSING CDI WITH FOAM TAPE. PT DENIES NEEDS AT THIS TIME.
[2019-08-21] MEDS ORDERED: PNEUMOCOCCAL VACCINE POLYVALENT 23 MCG/0.5 ML VIAL IM SCH (13:00)
[2019-08-21] MEDS ORDERED: INFLUENZA VIRUS VAC SPLIT INJ 0.5 ML SYR IM SCH (13:00)
--- NOTE | 2019-08-21 13:10 | NUR ---
PAGED DR. DE LEON REGARDING PT DIET.
--- NOTE | 2019-08-21 19:00 | NUR ---
BEDSIDE SHIFT REPORT GIVEN TO THE INBOUND TELEMARKETER RN. PT DENIED FURTHER NEEDS.
--- NOTE | 2019-08-21 19:15 | NUR ---
BSSR RECEIVED FROM DAYSHIFT RN, PATIENT AOX4, ABLE TO VERBALIZE HER NEEDS, SKIN WARM DRY, IN BED, NO DISTRESS NOTED, STATES PAIN LEVEL TOLERABLE AT THIS TIME, PATIENT IS REFUSING ORDERED IV FLUIDS STATES "MAKES ME PEE TO MUCH DURING THE NIGHT", PT HAS NON HEALING ABDOMINAL WOUNDS, WOUND CARE SAW THE PT IN ER, INFORMED BY RN THAT PATIENT ABDOMINAL DRESSING CHANGED BY ANIMAL CARE SPECIALIST IN ER , PT PRESENT WITH ABDOMINAL DRESSING C/D/I WITH FOAM TAPE. PATIENT REFUSING DRESSING CHANGE FOR ABDOMEN OR WOUND ASSESSMENT STATES "THEY WILL CHANGE THE DRESSING IN THE MORNING"
--- NOTE | 2019-08-21 20:50 | NUR ---
PATIENT NOT IN ROOM, HAVENT SEEN HER SINCE LAST HOURLY ROUNDING, NOTIFIED SECURITY TO BE ON LOOK OUT FOR PATIENT AND DIRECT HER BACK TO HER ROOM FOR SCHEDULED MEDICATION, CHARGE Juli MADE AWARE
--- NOTE | 2019-08-21 21:09 | NUR ---
PATIENT SEEN WALKING IN HALLWAY WITH WALKER, STATES "I WALKED MY BOYFRIEND OUT, AND I HAD TO TAKE A SMOKE BREAK", EDUCATED PATIENT TO JUST MAKE SURE THAT THE STAFF IS AWARE WHEN SHE LEAVES THE FLOOR, SAFELY BACK IN ROOM, CALL LIGHT WITHIN REACH
[2019-08-22] VITALS (14 sets, daily range): BP systolic 125–146; BP diastolic 61–80
[2019-08-22] MEDS: MEROPENEM 1GM 100 ML IV SCH ×3 (03:25→19:55)
--- NOTE | 2019-08-22 03:40 | NUR ---
HOURLY ROUNDING COMPLETED PATIENT SLEEPING, SCHEDULED ABT THERAPY GIVEN VIA RIGHT UPPER ARM IV, IV PATENT FLUSHES WELL, NO S/SX OF INFILTRATION NOTED, PATIENT OFFERED ASSISTANCE WITH TOILETING, ASSISTED UP FOR BRP, SAFETY MAINTAINED, RESTING COMFORTABLY BACK IN BED, WITH CALL LIGHT, PERSONAL BELONGINGS WITHIN REACH, BED IN LOWEST POSITION, PT REPOSITIONED FOR COMFORT, THERMOSTAT ADJUSTED FOR COMFORT, EDUCATED ON NEXT SCHEDULE PRN PAIN MEDICATION, REPORTS MODERATE PAIN LEVEL 5/10WILL CONTINUE TO MONITOR
[2019-08-22] MEDS: LINEZOLID 600 MG/D5W 300ML 300 ML IV SCH ×2 (04:36→17:00)
[2019-08-22] MEDS: HYDROCODONE/APAP 7.5MG-325MG 1 EA TAB PO PRN ×5 (04:40→23:53)
--- NOTE | 2019-08-22 07:05 | NUR ---
RCD PT VAT BED PT IS ALERT AND ORIENTED RESTING ON BED ,IV PATENT BY SALINE FLUSH BED LOW AND LOCKED CALL LIGHT IN REACH
[2019-08-22] MEDS: COLLAGENASE 5 GM TUBE TOP SCH (09:00)
[2019-08-22] MEDS: SODIUM CHLORIDE 0.9% 1000ML 1,000 ML IV SCH ×2 (09:01→20:15)
--- NOTE | 2019-08-22 12:00 | NUR ---
DRESSING CHANGED ON THE ABDOMEN
--- NOTE | 2019-08-22 13:10 | NUR ---
PATIENT WANTING TO WALK FAMILY DOWNSTAIRS. PATIENT STATING THAT SHE CAN GO SMOKE. ADVISED PATIENT THAT THIS IS A NO SMOKING FACILITY AND SMOKING IS NOT ALLOWED. PATIENT WALKED TO THE ELEVATORS AND WENT DOWN TO GO OUTSIDE.
--- NOTE | 2019-08-22 18:43 | NUR ---
PT RESTING ON BED BED SIDE REPORT GIVEN TO ONCOMING NURSE
--- NOTE | 2019-08-22 19:07 | NUR ---
BSSR RECEIVED FROM ERENDIRA RN, PATIENT SEEN AOX4, FAMILY AT BEDSIDE, STATES "I ONLY HAD DIARRHEA ONE TIME, AND I THINK IT WAS THE APPLE JUICE" PATIENT INFORMED TO NOTIFY US IF SHE HAS BOWEL MOVEMENT FOR SPECIMEN, CALL LIGHT WITHIN REACH
[2019-08-22] MEDS: ATORVASTATIN 20 MG TAB PO SCH (19:58)
[2019-08-23] VITALS (8 sets, daily range): BP systolic 114–137; BP diastolic 58–77
[2019-08-23] MEDS: MEROPENEM 1GM 100 ML IV SCH ×3 (03:10→20:16)
[2019-08-23] MEDS: LINEZOLID 600 MG/D5W 300ML 300 ML IV SCH ×2 (04:13→17:00)
[2019-08-23] MEDS: HYDROCODONE/APAP 7.5MG-325MG 1 EA TAB PO PRN ×4 (05:29→20:17)
[2019-08-23 06:22] LABS: HEMOGLOBIN 9.3 g/dL (12.0-16.0)
--- NOTE | 2019-08-23 06:56 | NUR ---
BSSR GIVEN TO RN ERENDIRA, PATIENT STATES "SHE WANTS TO GO SMOKE AND DRINK COFFEE", REITERATED TO PATIENT SHE MUST REMAIN ON FLOOR, WALK WITH RN, PATIENT STATES "I UNDERSTAND", IV ABT THERAPY CURRENTLY INFUSING, IV SITE RIGHT UPPER ARM, PATENT, NO S/SX OF INFILTRATION NOTED, CALL LIGHT WITHIN REACH
--- NOTE | 2019-08-23 07:10 | NUR ---
RCD PT AT BED PT IS ALERT AND ORIENTED RESTING ON BED ,IV PATENT BY SALINE FLUSH BED LOW AND LOCKED CALL LIGHT IN REACH
[2019-08-23] MEDS: COLLAGENASE 5 GM TUBE TOP SCH (09:00)
[2019-08-23] MEDS: MULTIVITAMINS/MINERALS TAB PO SCH (09:00)
--- NOTE | 2019-08-23 10:00 | NUR ---
IV INFILTRATED PT SAID VERY HARD STICKING SO NOTIFIED CHARGE NURSE HE COULD NOT MAKE IT PAGED AND NOTIFIED DR SEBASTIAN GOT THE ORDER FOR PICC LINE
[2019-08-23] MEDS: SODIUM CHLORIDE 0.9% 1000ML 1,000 ML IV SCH ×2 (10:56→15:26)
--- NOTE | 2019-08-23 12:26 | NUR ---
OK TO USE PICC LINE BY MARY( PICC IRONWORKER APPRENTICE)
--- NOTE | 2019-08-23 13:34 | Diagnostic Imaging Report ---
EXAMINATION: CHEST XRAY LINE PLACEMENT INDICATION: Line placement. COMPARISON: Chest radiograph 08/20/2019. FINDINGS: TUBES and LINES: Right arm PICC with catheter tip in the SVC. LUNGS: Lungs are well inflated. There is no evidence of pneumonia or pulmonary edema. PLEURA: No pleural effusion or pneumothorax. HEART AND MEDIASTINUM: The cardiomediastinal silhouette is unremarkable. BONES AND SOFT TISSUES: No acute osseous lesion. Soft tissues are unremarkable. UPPER ABDOMEN: No free air under the diaphragm. IMPRESSION: Right arm PICC with catheter tip in the SVC. No evidence of pneumothorax. Signed by: Dr. Jaquelin Sánchez MD on 08/23/2019 1:32 PM
--- NOTE | 2019-08-23 15:24 | NUR ---
WOUND CS ORDER SHOWS IN CANCELLED STATUS PAGED AND TALKED DR SEBASTIAN HE SAID HE DIDN'T CANCEL IT
--- NOTE | 2019-08-23 17:12 | NUR ---
DRESSING CHANGED AND SEND PUS FOR CS
--- NOTE | 2019-08-23 19:13 | NUR ---
PT RESTING ON BED BED SIDE REPORT GIVEN TO ONCOMING NURSE
--- NOTE | 2019-08-23 19:16 | NUR ---
RECEIVED BSSR FROM ERENDIRA SCOTT, PATIENT AWAKE ALERT, NEW PICC LINE TEA DOUBLE LUMEN NOTED, NO REPORTS OF PAIN/DISCOMFORT NOTED PATIENT SKIN WARM DRY AFEBRILE, CALL LIGHT WITHIN REACH, DRESSING ABDOMINAL WOUND C/D/I, PENDING C&S PER SONIA KRISHNA
[2019-08-23] MEDS: ATORVASTATIN 20 MG TAB PO SCH (20:16)
--- NOTE | 2019-08-23 21:37 | Progress Note ---
DATE: 08/23/2019 REASON FOR PROGRESS NOTE: Abdominal pain; referred by Dr. Marlon Curry. SUBJECTIVE: The patient resting in bed. Wound is dressed. No abdominal pain. PHYSICAL EXAMINATION: CARDIAC: Shows regular rate and rhythm. LUNGS: Clear to auscultation and percussion bilaterally. ABDOMEN: Globoid, benign. No peritoneal signs. The inferior aspect of her laparotomy wound is healing. There is some separation of the edges of the wound, but this is resolving with wound care. Both groin wounds are well healed. BACK: No CVA tenderness. No muscular spasm. EXTREMITIES: No cyanosis, clubbing, or edema. VASCULAR: Carotids, radials, and femorals 2+/2+ bilaterally. REVIEW OF SYSTEMS: CHEST PAIN: Negative. LUNGS: No dyspnea. ABDOMEN: Slight discomfort around the wound, but otherwise negative. VASCULAR: No claudication. INFECTIOUS: No fevers. LABORATORIES: Hemoglobin 9.3, hematocrit 31.0, white count 6.5, and platelet count 333,000. INR is normal at 0.99. Sodium 137, potassium 4.1, and creatinine 0.53. Liver function tests are normal. IMPRESSION: Wound is healing well. The patient is being evaluated for outpatient care and I agree. MD FARSHAD Severino/SANDRA /[id number]
[2019-08-24] VITALS (11 sets, daily range): BP systolic 112–142; BP diastolic 57–72
[2019-08-24] MEDS: HYDROCODONE/APAP 7.5MG-325MG 1 EA TAB PO PRN ×6 (00:20→21:12)
[2019-08-24] MEDS: MEROPENEM 1GM 100 ML IV SCH ×3 (03:53→20:17)
[2019-08-24] MEDS: LINEZOLID 600 MG/D5W 300ML 300 ML IV SCH ×2 (05:07→16:47)
[2019-08-24] MEDS: ALBUTEROL SULFATE HFA 8GM INHALATION AEROSOL INH SCH ×3 (07:00→20:51)
--- NOTE | 2019-08-24 07:10 | NUR ---
report received from evening RN. patient off unit at this time.
--- NOTE | 2019-08-24 07:20 | NUR ---
patient returned to room after ambulating outside. patient verbalized to me that a it security architect had spoken to her about smoking on hospital grounds. I educated patient on smoking cessation and stated again we are a non-smoking facility.
--- NOTE | 2019-08-24 07:41 | NUR ---
BSSR GIVEN TO DAYSHIFT RN, PATIENT SEEN AWAKE ALERT, NO DISTRESS NOTED, HX DX, AND PLAN OF CARE DISCUSSED WITH RN AND PATIENT, CALL LIGHT WITHIN REACH
[2019-08-24] MEDS: MULTIVITAMINS/MINERALS TAB PO SCH ×2 (08:17→09:00)
--- NOTE | 2019-08-24 10:00 | NUR ---
wound care preformed to patient's abdominal wound. New dressing CDI.
[2019-08-24] MEDS: COLLAGENASE 5 GM TUBE TOP SCH (10:40)
--- NOTE | 2019-08-24 15:00 | NUR ---
patient frequently leaving hospital unit to go for walks outside. education for preventing falls provided each time.
--- NOTE | 2019-08-24 15:48 | NUR ---
Spoke with pt at bedside regarding outpatient wound care. Pt states she wants to go to [facility] outpatient wound clinic. States she does not need nursing home at home for wound care. Pt states that she can do her own wound care until she can be seen at the clinic. States she has help at home as well. States she will follow up with Dr. Villanueva and Dr. Curry after discharge. States she would like to have provider service to help clean her house. States she will call her insurance to get that arranged. Choice letter signed for [facility]'s outpatient wound clinic. Signed copy placed in chart. Copy to pt with clinic's address and phone number. Spoke with Pauline at wound clinic regarding referral. She said only MDs that can take pt's insurance are Drs. Hurtado and Leandro. Dr. Hurtado will be out until 08/[address] Reeves will be out until 09/02. Message left for Dr. Curry.
--- NOTE | 2019-08-24 17:30 | NUR ---
Spoke with Dr. Curry, informed him of wound care clinic situation. Dr. Curry stated that pt would have to stay in house, since pt was not managing her wound correctly at home. CM informed Dr. Curry that pt does not want to stay at the hospital. Pt willing to go home with home health. Dr. Curry asked CM to check with Dr. Villanueva and gave order for home health as long as Dr. Villanueva is ok with it. CM contacted Dr. Villanueva who stated that he was fine with home health for pt. CM spoke to pt. She states she previously used [facility], would like to use them again. . CM will call home health company in AM and send referral.
--- NOTE | 2019-08-24 20:15 | NUR ---
PATIENT IS IN STABLE CONDITION AOX4, NO SIGNS OF DISTRESS NOTED. IV ANTIBIOTICS ARE RUNNING AT ORDERED RATE AND PATIENT VOICES PAIN AT A LEVEL OF 7 AND WAS MEDICATED ORDERED. ABDOMINAL DRESSING IS CLEAN, DRY AND INTACT, NO DRAINAGE NOTED. BED IS IN LOWEST POSITION, BOTH SIDE RAILS ARE UP, CALL LIGHT IS WITHIN EASY REACH, WILL CONTINUE TO MONITOR.
[2019-08-24] MEDS: ATORVASTATIN 20 MG TAB PO SCH (20:18)
--- NOTE | 2019-08-24 22:12 | Progress Note ---
DATE: 08/24/2019 REASON FOR PROGRESS NOTE: Abdominal pain. SUBJECTIVE: The patient resting comfortably in bed. No abdominal pain. PHYSICAL EXAMINATION: CARDIAC: Regular rate and rhythm. Normal S1, S2. LUNGS: Clear to auscultation and percussion bilaterally. ABDOMEN: Globoid, benign. Good bowel sounds. No peritoneal signs. The inferior aspect of the laparotomy wound is healing. There is some separation of the skin edges of the wound, but this is resolving with wound care. Both groin wounds are well healed without any evidence of separation. BACK: No CVA tenderness. No muscular spasm. VASCULAR: Carotids, radials, and femorals 2+/2+ bilaterally. REVIEW OF SYSTEMS: CHEST PAIN: Negative. LUNGS: No dyspnea or cough. ABDOMEN: Slight discomfort around the wound, but otherwise negative. VASCULAR: No claudication. INFECTIOUS: No fevers. LABORATORY DATA: No new blood tests. IMPRESSION: Wound is healing well. The patient is being evaluated for outpatient care. MD FARSHAD Severino/MODL /[id number]
[2019-08-25] VITALS (7 sets, daily range): BP systolic 115–130; BP diastolic 54–68
[2019-08-25] MEDS: HYDROCODONE/APAP 7.5MG-325MG 1 EA TAB PO PRN ×5 (01:36→17:44)
[2019-08-25] MEDS: MEROPENEM 1GM 100 ML IV SCH ×2 (04:21→12:30)
[2019-08-25] MEDS: LINEZOLID 600 MG/D5W 300ML 300 ML IV SCH ×2 (05:41→17:43)
[2019-08-25] MEDS: ALBUTEROL SULFATE HFA 8GM INHALATION AEROSOL INH SCH ×2 (07:45→15:00)
--- NOTE | 2019-08-25 08:17 | NUR ---
CM spoke to pt at bedside regarding home health. Pt states she has spoken with her insurance company and informed them of need for home health. Pt would like to use her previous home health company, if possible. States she was fine using another company if [facility] is unable to accept. Choice letter signed for [facility] and [facility]. Signed choice letter placed in chart. Copy to pt with each company's contact information. referral faxed to [facility]. Received fax confirmation. / CM placed call to HH company, but did not get a response. Will try again at a later time.
[2019-08-25] MEDS: MULTIVITAMINS/MINERALS TAB PO SCH (09:00)
--- NOTE | 2019-08-25 09:13 | NUR ---
CM placed call to [facility] again. Spoke with Sophie, who states they are a provider service, not home health agency. Home health referral was faxed to [facility] .
--- NOTE | 2019-08-25 10:39 | NUR ---
Received call from Carmen at [facility] home health. States they are the home health side of [facility] and that [facility] forwarded them the referral. States they have a contract with [employer] [employer] and are ready to come out to see pt. Informed her we do not have choice from pt for their company. CM will speak with pt and let them know. CM to pt's bedside to discuss home health. Pt states she is fine with using [facility]. Choice letter signed and placed in chart. Copy to pt with HH contact information. TREMAYNE called and spoke to Sabrina at [facility]. Notified her to cancel referral. TREMAYNE called Carmen and informed her pt gave choice and to continue with referral. Informed her anticipate dc today. She states they will see pt tomorrow and will be able to come out daily to see pt. [facility]
[2019-08-25] MEDS: SODIUM CHLORIDE 0.9% 1000ML 1,000 ML IV SCH (10:56)
--- NOTE | 2019-08-25 12:00 | NUR ---
patient wants to wait for Dr. Curry for dressing change so that he can see her wound.
--- NOTE | 2019-08-25 17:45 | NUR ---
Nutrition Intervention Note RD Recommendation(s) for Physician: - Ensure Compact BID for added nutrition due to wound - Continue current diet as ordered Plan of Care: RD following, monitoring for tolerance and adequacy Nutrition reason for involvement: Length of stay RD Assessment (08/25/19) Pt is a 53 year old female admitted with postoperative wound cellulitis. Per wound care note on 08/20, pt has a nonhealing surgical wound to lower abdomen. Pt reports she has been consuming about 40% of her meals, but ate most of her dinner meal last night. Prior to admission, pt mentioned she was mainly consuming soups and liquids since July 2019. Pt mentioned she had weighed 198 lbs in June 2019 and that the weight of 235 lbs in chart is not accurate. No chewing/swallowing issues. Will provide pt with Ensure compact BID for added nutrition due to wound. Principal Problems/Diagnoses: postoperative wound cellulitis PMH: peripheral vascular disease, smoking I/O: 360/- GI: soft, nontender abdomen, last recorded BM 08/24 Skin: nonhealing surgical wound to lower abdomen Labs: (08/25/19) BUN 5, Creat 0.53, Ca 8.3 Meds: meropenem, Lipitor, zofran, multivitamin with minerals, NaCl Ht: 63 inches Wt: 198 lbs (per pt) BMI: 35.1 kg/m2 IBW: 115 lbs Malnutrition Evaluation (08/25/19) The patient does not meet criteria for a specified degree of malnutrition at this time. Will re-evaluate at follow-up as appropriate. Nutrition Prescription (Diet Order): Cardiac diet Estimated Nutritional Needs: 4470-1293 calories/day (22-25 kcal/kg IBW) 78-105 g protein/day (1.5-2 g pro/kg IBW) Diet Adequacy: Pt reports she has been consuming about 40% of her meals, but ate most of her dinner last year. Prior to admission, pt mentioned she was mainly consuming soups and liquids since July 2019. Tolerance: Tolerating PO Diet Education Needs Assessment: Pt was interested in diet education materials Nutrition Education Learner(s): pt Barriers: none Cultural/Language Modifications: No cultural/language modifications noted. Readiness: eager, acceptance Method: explanation/ discussion, handout Topics: cardiac diet Understanding/Compliance: Pt verbalized understanding and was willing to comply with dietary recommendations. Nutrition Care Level: low Nutrition Diagnosis: Increased nutrient needs related to increased demand for protein and kcal as evidenced by nonhealing surgical wound to lower abdomen. Goal: Patient will meet 75-100% of estimated needs by follow up Progress: N/A Interventions: -sodium, fat, cholesterol-modified diet, Commercial beverage Monitoring/Evaluation: -Total energy intake, Total protein intake, Modified diet, Liquid supplement, Weight change, Level of knowledge Signed: Kia Morales RD, LD
[2019-08-25] MEDS: COLLAGENASE 5 GM TUBE TOP SCH (19:25)
--- NOTE | 2019-08-25 19:51 | NUR ---
discharge order received. Wound care preformed- wet to dry with santyl ointment. PICC line removed, tip intact. Patient called [facility] in front of me and verified prescription for ABX was there and ready. patient wheeled off unit in stable condition to 's personal vehicle.
--- NOTE | 2019-08-26 06:50 | Discharge Summary ---
See also ER note and history and physical. The patient was concerned regarding her abdominal wound and recent aortofemoral bypass. She called her insurance company's nurse. The nurse referred her to the emergency room "before admission" and the patient was admitted for wound care. She was kindly seen at the time of admission by her surgeon, see notes. She was treated with topical care and intravenous antibiotics. Culture of urine blood negative. Staph on wound culture. Sensitivity still pending. The patient's medical issues were tended to while she was here. She was counseled regarding the need to discontinue her heavy tobacco habit. Course complicated by diarrhea. CD toxin negative. The patient required a right arm PICC line while here only. She also had serial laboratory and imaging studies while here. CT abdomen performed per ER essentially without abscess. The patient experienced some improvement in her inflammation and her inguinal wounds improved. Her mid abdominal wound remained with partial deshpande base partial opening. Scant serous drainage. She will follow up with Wound Care and continue oral antibiotics. She will follow up with her surgeon. FINAL IMPRESSION: 1. Cellulitis with partial opening of her recent aortofemoral bypass graft abdominal wounds. No evidence at this time of graft infection. 2. Chronically ill patient with severe generalized atherosclerosis. 3. Degenerative joint disease with chronic pain. 4. Chronic obstructive pulmonary disease. Heavy smoker. 5. Hyperlipoproteinemia. 6. Prior stroke old. 7. Carotid artery stenosis. 8. Primary hypertension. 9. Prior pulmonary embolus. 10. Bipolar psychosis. 11. Posttraumatic stress syndrome. 12. Osteoporosis. 13. Obesity. 14. Degenerative joint disease involving the knees and hips. See also discharge med reconciliation list. Ultimately, the patient was unable to attend wound clinic because of markedly reduced ability for current ambulation and she will be attended by home health. Prognosis is guarded. MD BATSHEVA Jackson/ROCKYL /[id number]
== END 2019-08-25 20:10 | disposition home health service (06) | DRG 920 ==
LOC: ER 15:44 → ERHOLD 17:01 → MED/SURG2 08-21 12:38
PROVIDERS: ADMIT Internal Medicine; ATTEND Internal Medicine
PROC: 02HV33Z Insertion of Infusion Device into Superior Vena Cava, Percutaneous Approach (ICD-10-PCS; principal; 2019-08-23)
DX: T81.31XA Disruption of external operation (surgical) wound, not elsewhere classified, initial encounter (principal); L03.311 Cellulitis of abdominal wall; F31.5 Bipolar disorder, current episode depressed, severe, with psychotic features; Z68.41 Body mass index [BMI] 40.0-44.9, adult; F17.210 Nicotine dependence, cigarettes, uncomplicated; I10 Essential (primary) hypertension; F43.10 Post-traumatic stress disorder, unspecified; M16.0 Bilateral primary osteoarthritis of hip; M17.0 Bilateral primary osteoarthritis of knee; E78.5 Hyperlipidemia, unspecified; Z86.711 Personal history of pulmonary embolism; M81.0 Age-related osteoporosis without current pathological fracture; J44.9 Chronic obstructive pulmonary disease, unspecified; Z86.73 Personal history of transient ischemic attack (TIA), and cerebral infarction without residual deficits; I73.9 Peripheral vascular disease, unspecified; G89.29 Other chronic pain; I65.29 Occlusion and stenosis of unspecified carotid artery; E66.01 Morbid (severe) obesity due to excess calories
CPT/HCPCS: 36415; 36569; 71045; 74177; 80053; 81001; 82550; 82553; 82948; 83735; 84484; 85014; 85018; 85025; 85610; 85730; 87040; 87071; 87086; 87186; 87205; 87493; 94664; 99284; 99285; J2020; J2270; J2405; J7030; Q9967

== ENCOUNTER 2020-03-27 22:16 | Observation (INO) | payer OTHER ==
[~2020-03-27] VITALS: Ht 160 cm; Wt 106.6 kg
[~2020-03-27 22:16] MED LIST changes: +ATORVASTATIN CA40 MG; +BUTALB-ACETAMI1 EAC2; +DIAZEPAM10 MG; +GABAPENTIN600 MG; +HYDROCODON-ACE1 EA12; +HYDROCODON-ACE1 EAC9; +LIDOCAINE1 EA; +METOPROLOL SUCC25 MG; +PROAIR HFA INH8.5 GM; +PROMETHAZINE HC25 M1; +RANITIDINE HCL300 MG; +TEMAZEPAM15 MG
--- NOTE | 2020-03-27 22:30 | NUR ---
Patient oxygen saturation dropped to 90% on room air. ER MD notified.
--- NOTE | 2020-03-27 22:32 | Emergency Department Note ---
History of Present Illnes History of Present Illness Chief Complaint: COVID PUI History of Present Illness This is a 54 year old female brought in by EMS for c/o shortness of breath that started Saturday. Patient states she tested positive for COVID 9 days ago. C/o chills. . Historian: Boot Turner/EMS Arrival Mode: [place] Onset (how long ago): day(s) (2) Location: LUNGS Quality: SOB,COUGH Radiation: Reports non-radiation Severity: moderate Onset quality: gradual Duration (how long): day(s) (2) Timing of current episode: constant Progression: worsening Chronicity: new Context: Reports recent illness (PPOSITIVE FOR COVID 19) Relieving factors: none Exacerbating factors: movement Associated symptoms: Reports cough, Reports fever/chills, Reports shortness of breath Treatments prior to arrival: none Past Medical/Family History Physician Review I have reviewed the patient's past medical and family history. Any updates have been documented here. Past Medical History Recent Fever: No Clinical Suspicion of Infectio: No New/Unexplained Change in Ment: No Past Medical History: COPD, Migraines, Anxiety, GERD, Hyperlipedemia, DVT/PE, Chronic Back Pain Other Medical History: IVC filter Chronic Neck Pain/Back pain Neuropathy Past Surgical History: Cholecysctectomy, Appendectomy, Hysterectomy, T&A, Knee Replacement Other Surgery: IVC filter, bladder suspension, Left knee x2 aortic bypass Social History Smoking Cessation: Current every day smoker Alcohol Use: None Any Illegal Drug Use: No Other Last Tetanus: UTD Review of Systems Review of Systems Constitutional: Reports no symptoms EENTM: Reports no symptoms Cardiovascular: Reports no symptoms Respiratory: Reports as per HPI Gastrointestinal: Reports no symptoms Genitourinary: Reports no symptoms Musculoskeletal: Reports no symptoms Integumentary: Reports no symptoms Neurological: Reports no symptoms Psychological: Reports no symptoms Endocrine: Reports no symptoms Hematological/Lymphatic: Reports no symptoms Physical Exam Related Data Allergies: Coded Allergies: ketorolac (Verified Allergy, Mild, 12/18/18) piperacillin (Verified Allergy, Mild, 12/18/18) tazobactam (Verified Allergy, Mild, 12/18/18) vancomycin (Verified Allergy, Mild, 12/18/18) acetaminophen (Verified Allergy, Unknown, 03/27/20) ciprofloxacin (Verified Allergy, Unknown, 12/18/18) hydroxyzine (Verified Allergy, Unknown, 03/27/20) sumatriptan (Verified Allergy, Unknown, 12/18/18) tramadol (Verified Allergy, Unknown, 12/18/18) Triage Vital Signs Vital Signs Date Time Temp Pulse Resp B/P (MAP) Pulse Ox O2 Delivery O2 Flow Rate FiO2 03/27/20 22:20 98.4 96 20 102/61 97 Room Air Vital signs reviewed: Yes Physical Exam CONSTITUTIONAL Constitutional: Present well-developed, Present well-nourished; Absent distressed HENT HENT: Present normocephalic, Present atraumatic, Present oropharynx clear/moist, Present nose normal HENT L/R: Present left ext ear normal, Present right ext ear normal EYES Eyes: Reports PERRL, Reports conjunctivae normal NECK Neck: Present ROM normal PULMONARY Pulmonary: Present effort normal, Present other (BREATH SOUNDS DECREASED AT BASE BILATERAL) CARDIOVASCULAR Cardiovascular: Present regular rhythm, Present heart sounds normal, Present capillary refill normal, Present normal rate GASTROINTESTINAL Abdominal: Present soft, Present nontender, Present bowel sounds normal GENITOURINARY Genitourinary: Present exam deferred SKIN Skin: Present warm, Present dry MUSCULOSKELETAL Musculoskeletal: Present ROM normal NEUROLOGICAL Neurological: Present alert, Present oriented x 3, Present no gross motor or sensory deficits PSYCHOLOGICAL Psychological: Present mood/affect normal, Present judgement normal Results Laboratory Laboratory Laboratory Tests Test 03/27/20 22:43 White Blood Count 9.88 x10e3/uL (4.8-10.8) Red Blood Count 4.75 x10e6/uL (3.6-5.1) Hemoglobin 13.4 g/dL (12.0-16.0) Hematocrit 42.6 % (34.2-44.1) Mean Corpuscular Volume 89.7 fL (81-99) Mean Corpuscular Hemoglobin 28.2 pg (28-32) Mean Corpuscular Hemoglobin Concent 31.5 g/dL (31-35) Red Cell Distribution Width 14.9 % (11.7-14.4) Platelet Count 243 x10e3/uL (140-360) Neutrophils (%) (Auto) 47.5 % (38.7-80.0) Lymphocytes (%) (Auto) 43.4 % (18.0-39.1) Monocytes (%) (Auto) 7.0 % (4.4-11.3) Eosinophils (%) (Auto) 1.4 % (0.0-6.0) Basophils (%) (Auto) 0.5 % (0.0-1.0) Neutrophils # (Auto) 4.7 (2.1-6.9) Lymphocytes # (Auto) 4.3 (1.0-3.2) Monocytes # (Auto) 0.7 (0.2-0.8) Eosinophils # (Auto) 0.1 (0.0-0.4) Basophils # (Auto) 0.1 (0.0-0.1) Absolute Immature Granulocyte (auto 0.02 x10e3/uL (0-0.1) Sodium Level 139 mmol/L (136-145) Potassium Level 3.8 mmol/L (3.5-5.1) Chloride Level 104 mmol/L (98-107) Carbon Dioxide Level 22 mmol/L (22-29) Anion Gap 16.8 mmol/L (8-16) Blood Urea Nitrogen 9 mg/dL (7-26) Creatinine 0.76 mg/dL (0.57-1.11) Estimat Glomerular Filtration Rate > 60 ML/MIN (60-) BUN/Creatinine Ratio 12 (6-25) Glucose Level 95 mg/dL (74-118) Calcium Level 9.6 mg/dL (8.4-10.2) Total Bilirubin 0.1 mg/dL (0.2-1.2) Aspartate Amino Transf (AST/SGOT) 15 IU/L (5-34) Alanine Aminotransferase (ALT/SGPT) 6 IU/L (0-55) Alkaline Phosphatase 103 IU/L (40-150) Creatine Kinase 35 IU/L (29-168) Creatine Kinase MB 1.00 ng/mL (0-5.0) Troponin I 0.003 ng/mL (0-0.300) Total Protein 7.4 g/dL (6.5-8.1) Albumin 3.7 g/dL (3.5-5.0) Globulin 3.7 g/dL (2.3-3.5) Albumin/Globulin Ratio 1.0 (0.8-2.0) Lab results reviewed: Yes Imaging Imaging results reviewed: Yes Impressions [address], [facility] [place] [address] Patient Name: JOSHUA WEAVER MR #: [id number] : 1965 Age/Sex: 54/F Req #: [id number] Adm Physician: Ordered by: KATE JHA MD Report #: [id number] Location: ER Room/Bed: Procedure: [id number] DX/CHEST SINGLE (PORTABLE) Exam Date: 03/27/20 Exam Time: 2250 REPORT STATUS: Signed EXAMINATION: CHEST SINGLE (PORTABLE) INDICATION: SOB, COVID + COMPARISON: Radiograph dated 08/23/2019. FINDINGS: TUBES and LINES: None. LUNGS: Normal lung volumes. Mild patchy right infrahilar opacity. Prominent interstitial markings. PLEURA: No pleural effusion or pneumothorax. HEART AND MEDIASTINUM: The cardiomediastinal silhouette is unremarkable. IMPRESSION: Mild patchy right infrahilar opacity could represent atelectasis or focus of infection. Signed by: Harjeet Ayon MD on 03/27/2020 11:19 PM Dictated By: HARJEET AYON MD 18 Transcribed By: ORIANA on 03/27/202318 COPY TO: KATE JHA MD~ Procedures 12 Lead ECG Interpretation ECG Interpretation : ECG: ECG 1 Body Service Team Member: Interpreted by ED physician Date: Mar 27, 2020 Time: 22:27 Rhythm: sinus rhythm Rate: normal BPM: 87 QRS axis: normal ST segments normal: Yes T waves normal: Yes Other findings: no other findings Clinical Impression: normal ECG Assessment & Plan Medical Decision Making MDM PT WITH COVID 19 WITH INCREASING SOB CBC,CMP, EKG, CXR ORDERED TO EVAL FOR PNEUMONIA, LEUKOCYTOSIS, ELECTROLYTE ABNORMALITY I SPOKE WITH DR SEBASTIAN, DR GUARDADO AND LEFT A MESSAGE FOR DR DORA GUARDADO REQUESTS CT CHEST WITH CONTRAST BE ORDERED Assessment & Plan Final Impression: (1) COVID-19 (2) Pneumonia (3) COPD (chronic obstructive pulmonary disease) Depart Disposition: ADMITTED Last Vital Signs Date Time Temp Pulse Resp B/P (MAP) Pulse Ox O2 Delivery O2 Flow Rate FiO2 03/27/20 22:20 98.4 96 20 102/61 97 Room Air Home Meds Reported Medications Promethazine Hcl (PROMETHAZINE HCL) 25 Mg Tablet 08/20/19 Gabapentin (GABAPENTIN) 600 Mg Tablet 08/20/19 Ranitidine Hcl (RANITIDINE HCL) 300 Mg Tablet 08/20/19 Metoprolol Succinate (METOPROLOL SUCCINATE) 25 Mg Tab.er.24h 08/20/19 Temazepam (TEMAZEPAM) 15 Mg Capsule 08/20/19 Diazepam (DIAZEPAM) 10 Mg Tablet 08/20/19 Albuterol Sulf* (PROAIR HFA INHALER*) 8.5 Gm Inh 08/20/19 Lidocaine Hcl (LIDOCAINE) 1 Ea Oint 08/20/19 Hydrocodone Bit/Acetaminophen (HYDROCODON-ACETAMINOPH 7.5-325) 1 Each Tablet 08/20/19 Butalb/Acetaminophen/Caffeine (Orjrzl-Dtgivpxe-Ludw 50-300-40) 1 Each Capsule 08/20/19 Atorvastatin Calcium (ATORVASTATIN CALCIUM) 40 Mg Tablet 08/20/19 KATE JHA MD Mar 27, 2020 22:31
[2020-03-27 22:51] LABS: BASOPHILS # (AUTO) 0.1 (0.0-0.1); BASOPHILS % 0.5 % (0.0-1.0); EOSINOPHILS # (AUTO) 0.1 (0.0-0.4); EOSINOPHILS % 1.4 % (0.0-6.0); HEMATOCRIT 42.6 % (34.2-44.1); HEMOGLOBIN 13.4 g/dL (12.0-16.0); LYMPHOCYTES # (AUTO) 4.3 (1.0-3.2); LYMPHOCYTES % 43.4 % (18.0-39.1); MEAN CORPUSCULAR HEMOGLOBIN 28.2 pg (28-32); MEAN CORPUSCULAR HGB CONC 31.5 g/dL (31-35); MEAN CORPUSCULAR VOLUME 89.7 fL (81-99); MONOCYTES # (AUTO) 0.7 (0.2-0.8); NEUTROPHILS # (AUTO) 4.7 (2.1-6.9); NEUTROPHILS % 47.5 % (38.7-80.0); PLATELET COUNT 243 x10e3/uL (140-360); RED BLOOD COUNT 4.75 x10e6/uL (3.6-5.1); RED CELL DISTRIBUTION WIDTH 14.9 % (11.7-14.4)
[2020-03-27 23:07] LABS: ALANINE AMINOTRANSFERASE 6 IU/L (0-55); ALBUMIN 3.7 g/dL (3.5-5.0); ALKALINE PHOSPHATASE 103 IU/L (40-150); ANION GAP 16.8 mmol/L (8-16); BLOOD UREA NITROGEN 9 mg/dL (7-26); BUN/CREATININE RATIO 12 (6-25); CARBON DIOXIDE 22 mmol/L (22-29); CHLORIDE 104 mmol/L (98-107); CREATINE KINASE 35 IU/L (29-168); CREATININE, SERUM 0.76 mg/dL (0.57-1.11); EST GLOMERULAR FILTRATION RATE > 60 ML/MIN (60-); GLUCOSE 95 mg/dL (74-118); POTASSIUM 3.8 mmol/L (3.5-5.1); SODIUM 139 mmol/L (136-145)
[2020-03-27 23:09] LABS: CALCIUM 9.6 mg/dL (8.4-10.2)
--- NOTE | 2020-03-27 23:22 | Diagnostic Imaging Report ---
EXAMINATION: CHEST SINGLE (PORTABLE) INDICATION: SOB, COVID + COMPARISON: Radiograph dated 08/23/2019. FINDINGS: TUBES and LINES: None. LUNGS: Normal lung volumes. Mild patchy right infrahilar opacity. Prominent interstitial markings. PLEURA: No pleural effusion or pneumothorax. HEART AND MEDIASTINUM: The cardiomediastinal silhouette is unremarkable. IMPRESSION: Mild patchy right infrahilar opacity could represent atelectasis or focus of infection. Signed by: Bharat Carrington MD on 03/27/2020 11:19 PM
[2020-03-28] MEDS ORDERED: AZITHROMYCIN 500MG/NS 250 ML 250 ML IV SCH
[2020-03-28] MEDS ORDERED: CEFTRIAXONE SOD 1 GM/NS 50 ML 50 ML IV SCH
[2020-03-28] MEDS ORDERED: SODIUM CHLORIDE 0.9% 1000ML 1,000 ML IV ONE
[2020-03-28] MEDS ORDERED: DEXAMETHASONE SOD PHOS 10 MG/1 ML VIAL IV SCH
--- NOTE | 2020-03-28 01:34 | Diagnostic Imaging Report ---
EXAM: CT Chest WITHOUT contrast INDICATION: ^COVID 19, PNEUMONIA ^Y COMPARISON: None TECHNIQUE: Chest was scanned utilizing a multidetector helical scanner from the lung apex through the level of the adrenal glands without administration of IV contrast. Absence of intravenous contrast decreases sensitivity for detection of lymphadenopathy and vascular pathology. Coronal and sagittal reformations were obtained. Routine protocol was performed. IV CONTRAST: None COMPLICATIONS: None FINDINGS: LUNGS AND AIRWAYS: Mild bronchial wall thickening and tree-in-bud nodularity in the posterior right upper lobe. A few foci of patchy groundglass in the anterior right upper lobe. Mild centrilobular emphysema is suspected. No consolidation. The left lung is clear. Minimal strands of dependent atelectasis. PLEURA: The pleural spaces are clear. HEART AND MEDIASTINUM: The thyroid gland is normal. No mediastinal, hilar or axillary lymphadenopathy. The heart is normal in size. There is no pericardial effusion. UPPER ABDOMEN: Cholecystectomy clips. BONES: The visualized bony thorax is within normal limits. IMPRESSION: Nonspecific tree-in-bud nodularity in the right upper lobe with mild bronchial wall thickening and a few additional foci of groundglass opacity could represent infectious bronchiolitis including bacterial and viral etiologies. Findings are atypical for Covid-19. Signed by: Bharat Carrington MD on 03/28/2020 1:30 AM
--- NOTE | 2020-03-28 02:11 | NUR ---
Patient resting with no distress noted. RR even and unlabored. Call light at bedside.
[2020-03-28 05:38] LABS: BASOPHILS % 0.4 % (0.0-1.0); EOSINOPHILS % 0.4 % (0.0-6.0); HEMATOCRIT 42.2 % (34.2-44.1); HEMOGLOBIN 13.3 g/dL (12.0-16.0); LYMPHOCYTES # (AUTO) 1.7 (1.0-3.2); LYMPHOCYTES % 21.2 % (18.0-39.1); MEAN CORPUSCULAR HEMOGLOBIN 28.2 pg (28-32); MEAN CORPUSCULAR HGB CONC 31.5 g/dL (31-35); MEAN CORPUSCULAR VOLUME 89.4 fL (81-99); MONOCYTES # (AUTO) 0.1 (0.2-0.8); MONOCYTES % 0.9 % (4.4-11.3); NEUTROPHILS # (AUTO) 6.3 (2.1-6.9); NEUTROPHILS % 76.9 % (38.7-80.0); RED BLOOD COUNT 4.72 x10e6/uL (3.6-5.1); RED CELL DISTRIBUTION WIDTH 15.1 % (11.7-14.4)
[2020-03-28 05:39] LABS: PLATELET COUNT 292 x10e3/uL (140-360)
[2020-03-28 06:05] LABS: CREATINE KINASE MB 1.2 ng/mL (0-5.0)
[2020-03-28 06:36] LABS: ALANINE AMINOTRANSFERASE 6 IU/L (0-55); ALBUMIN 3.6 g/dL (3.5-5.0); ALBUMIN/GLOBULIN RATIO 0.9 (0.8-2.0); ALKALINE PHOSPHATASE 96 IU/L (40-150); ANION GAP 16.4 mmol/L (8-16); BLOOD UREA NITROGEN 8 mg/dL (7-26); BUN/CREATININE RATIO 11 (6-25); CALCIUM 9.3 mg/dL (8.4-10.2); CARBON DIOXIDE 23 mmol/L (22-29); CHLORIDE 109 mmol/L (98-107); CREATININE, SERUM 0.73 mg/dL (0.57-1.11); EST GLOMERULAR FILTRATION RATE > 60 ML/MIN (60-); GLUCOSE 124 mg/dL (74-118); POTASSIUM 4.4 mmol/L (3.5-5.1); SODIUM 144 mmol/L (136-145)
[2020-03-28] MEDS ORDERED: TEMAZEPAM 15 MG CAP PO PRN (06:45)
[2020-03-28] MEDS ORDERED: ALBUTEROL SULFATE HFA 8GM INHALATION AEROSOL INH PRN (06:45)
--- NOTE | 2020-03-28 07:00 | NUR ---
Report to SONIA Anderson
--- NOTE | 2020-03-28 08:00 | NUR ---
VICTORINA NOT IN ROOM AT THIS TIME; PATIENT FOUND OUTSIDE THE ER SMOKING A CIGARETTE. PATIENT INFORMED OF NEED TO STAY IN HER ROOM, AND THE HOSPITALS NONSMOKING POLICY. PATIENT STATED UNDERSTANDING, STATING SHE DID NOT KNOW THAT HER COVID TEST WAS NOT BACK YET. PATIENT STATING SHE FEELS BETTER AFTER GETTING THE IV ABX.
--- NOTE | 2020-03-28 08:53 | Consultation ---
DATE OF CONSULTATION: Pulmonary Critical Care Consultation CHIEF COMPLAINT: Abdominal pain, cough and prior history of COVID-19. HISTORY OF PRESENT ILLNESS: The patient is a 54-year-old woman. She has a history of smoking and COPD. She uses rescue inhalers at home. She also has a nebulizer, but she ran out of nebulizer solution. Approximately 3 to 4 weeks ago, she was sick for 3 days with fevers and cough. She had a COVID test that was positive. Her symptoms subsequently abated, but she now complains of worsening cough and congestion for about 6 days. She has some nausea and some abdominal pain. She had some mild diarrhea. She does not have any fevers. She received some antibiotics and fluids in the emergency department and now feels better. PAST SURGICAL HISTORY: Status post aortobifemoral grafting in June of 2019. She required rehospitalization in August because of wound infection. PAST MEDICAL HISTORY: 1. COPD. 2. Peripheral vascular disease. 3. Hypertension. 4. Hypercholesterolemia. SOCIAL HISTORY: The patient recently quit smoking. She is not a drinker. ALLERGIES: THE PATIENT IS ALLERGIC TO CIPRO, PENICILLIN, TORADOL AND VANCOMYCIN. FAMILY HISTORY: Noncontributory. REVIEW OF SYSTEMS: The patient is not complaining of any fevers. She has no headache. She has no neck pain. She is not having any chest pain. She does have some congestion and some cough. She is bringing up some discolored phlegm. She has some mild abdominal pain. She has some diarrhea. She has no leg edema. PHYSICAL EXAMINATION: VITAL SIGNS: Blood pressure is 114/63, saturation is 96% on 1 L and the pulse is 74. Respiratory rate is 16. HEENT: Shows no facial swelling or erythema. LYMPHATIC: Shows no submandibular, cervical, or supraclavicular adenopathy. CARDIAC: Reveals a regular rate and rhythm with normal S1 and S2. LUNGS: Auscultation of lungs reveals decreased breath sounds at the bases. There is no wheezing. ABDOMEN: Soft and nontender. There is no rebound or guarding. There is some diarrhea. There is no leg edema. LABORATORY DATA: White blood cell count is 8.17, hemoglobin is 13.3, and the platelet count is 292. The BUN to creatinine ratio is 9 to 0.76. The other electrolytes are within normal limits. Albumin is 3.7. RADIOGRAPHIC DATA: Chest x-ray shows some patchy right infrahilar opacity. CT scan of the chest shows tree-in-bud nodularity in the right upper lobe with some mild bronchial wall thickening. There is some foci of ground-glass opacity as well, which could represent resolving bowel or bacterial infection. IMPRESSION: 1. Chronic obstructive pulmonary disease with acute exacerbation. 2. History of COVID-19 and viral pneumonia that has been improving over the past several weeks. 3. Diarrhea. 4. Peripheral vascular disease. 5. Hyperlipidemia. PLAN: 1. The patient will receive intravenous steroids as well as bronchodilators and antibiotics. 2. Continue prior inhalers. 3. Continue to monitor and control blood sugar. Tee Oropeza MD [facility]/MODL /[id number]
--- NOTE | 2020-03-28 09:10 | NUR ---
PATIENT REFUSING TO STAY IN HER ROOM; STATES THAT SHE WENT OUT "TO GET SOME AIR". PATIENT THEN STATING THAT SHE DOES NOT WANT TO STAY. PATIENT CONTINUALLY TAKING HERSELF OFF OF THE BUFFER INFLATED PAD, REFUSING TO STAY IN HER ROOM, ATTEMPTING TO GO OUTSIDE TO SMOKE. PATIENT EDUCATED ON DIAGNOSIS, PENDING COVID-19 SWAB, AND THE IMPORTANCE OF STAYING IN HER ROOM. PATIENT PLACED BACK ON CARDIAC AND O2 MONITORS.
--- NOTE | 2020-03-28 09:22 | NUR ---
PATIENT PLACED BACK ON CARDIAC MONITORS; PATIENT TALKING ON THE PHONE STATING THAT "NO ONE TOLD ME ANY OF MY RESULTS, THEY WON'T LET ME GO OUTSIDE TO SMOKE OR GET FRESH AIR. I NEED THEM TO CALL MY DOCTOR FOR PAIN MEDICATIONS". EXPLAINED TO PATIENT THAT ADMITTING PHYSICIAN WAS BEING PAGED, AND THAT WE WERE TRYING TO GET ORDERS FOR PAIN MEDICATIONS
[2020-03-28] MEDS ORDERED: HYDROCODONE/APAP 5MG-325MG TAB PO PRN (09:45)
--- NOTE | 2020-03-28 10:00 | NUR ---
PATIENT GIVEN NORCO 5/325 PER MD ORDER FOR PAIN. UPON GIVING PATIENT NORCO, PATIENT REQUESTING TO GO HOME STATING, "I FEEL BETTER AND WOULD RATHER GO HOME"
--- NOTE | 2020-03-28 10:20 | NUR ---
PATIENT CALLING REQUESTING COFFEE AT THIS TIME - COFFEE PROVIDED
--- NOTE | 2020-03-28 12:00 | NUR ---
DR GUARDADO IN TO SEE PATIENT; PATIENT STATING THAT SHE WANTS TO GO HOME
--- NOTE | 2020-03-28 14:08 | NUR ---
PATIENT AGAIN TRYING TO GO OUTSIDE, STATING THAT SHE WANTS TO GO HOME; SHE DOES NOT WANT TO STAY IN THE HOSPITAL. PATIENT GIVEN AMA FORM, RISKS AND BENEFITS EXPLAINED TO PATIENT, DR SEBASTIAN NOTIFIED
--- NOTE | 2020-03-28 14:49 | Discharge Summary ---
HOSPITAL COURSE: The patient was hospitalized through the emergency room for observation, having presented with chest tightness. She told the ER that she had tested positive for COVID 8 days prior to this. Chest CT abnormal with tree-in-bud changes, bronchiolitis on chest CT. The patient was kindly seen by her honing machine operator tool in the emergency room. I saw the patient in the emergency room. LAB DATA: Reviewed. A followup COVID test here was negative. The patient was initiated on treatment with steroids and was given a pulse of antibiotics in the emergency room. Cardiac enzymes revealed no [place]. The patient prior to admission analgesics were instituted. The patient felt much better after treatment in the emergency room and left the hospital against medical advice. FINAL IMPRESSION: Acute bronchiolitis. Chronic obstructive pulmonary disease. Heavy smoking one pack cigarettes daily. Hyperlipidemia. Peripheral vascular disease. History of carotid stenosis. Bipolar psychosis. Posttraumatic stress disorder. Osteoporosis. Chronic pain especially due to degenerative joint disease involving the lumbar spine, hips and knees. Primary hypertension. Peptic ulcer disease. The patient was advised to follow up with my office. See also medical reconciliation list. MD BATSHEVA Jackson/SANDRA /[id number]
--- NOTE | 2020-03-28 15:20 | Consultation ---
DATE OF CONSULTATION: REASON FOR CONSULTATION: Pneumonia. HISTORY OF PRESENT ILLNESS: Ms. Parada is a very pleasant 54-year-old female. She does have history of obesity, history of COPD. She was tested positive at least four weeks ago. She was sick, but she got better, now she has come in with shortness of breath and cough. The patient does have an underlying history of COPD, peripheral vascular disease, hypertension, hypercholesteremia, obesity. She recently quit smoking. She does have oxygen at the house occasionally. The patient is being admitted for pneumonia, I was asked to see her. PAST MEDICAL HISTORY: As above. PAST SURGICAL HISTORY: As above. ALLERGIES: CIPRO AND PENICILLIN. SOCIAL HISTORY: Currently no smoking, drug abuse, or alcohol abuse. FAMILY HISTORY: Unremarkable. LABORATORY DATA: White count 8.7, hemoglobin 13. Sodium 144, potassium 4.4, creatinine 0.73. PHYSICAL EXAMINATION: GENERAL: Currently alert, oriented, does not seem to be in acute distress. VITAL SIGNS: Stable, currently afebrile. HEENT: She is not icteric. NECK: Supple. CHEST: Crackles bilateral. HEART: S1, S2. ABDOMEN: Soft. Bowel sounds present. EXTREMITIES: No edema. SKIN: No rash. IMPRESSION: 1. Pneumonia, community acquired. 2. History of COVID-19 more than four weeks ago. The patient is not infectious anymore. We will treat her for community-acquired pneumonia. Agree with azithromycin and Rocephin. The patient has COPD. Agree with steroid. Oxygen as needed, albuterol inhaler. Discuss with Pulmonary. We will follow with you. MD FABIANA Gonzalez/SANDRA /[id number]
--- NOTE | 2020-03-28 15:55 | History and Physical ---
ADDENDUM: The patient's history was not totally reliable. Outside record reviewed. The patient underwent a COVID test on February 09, 2020, which was positive. The test was negative today. She had originally told the ER here that her test was positive eight days ago. Problems also include hyperlipidemia. Carotid stenosis with prior CVA. Bipolar, psychosis and PTSD. Osteoporosis. On December 09, 2018, stress test negative. History includes primary hypertension, peptic ulcer disease. PAST SURGICAL HISTORY: IVC filter, left total knee. "Shoulder, hip, back surgery." 1994 appendectomy, 1988 hysterectomy, 1983 BTL, 1988 bladder suspension, 1985 knee joint arthroscopy, 1990 tonsillectomy, 1994 cholecystectomy. MEDICATIONS: Prior to admission were reviewed. I called the ER nurse to discuss these and I was advised that the patient left against medical advice so that she could smoke. MD BATSHEVA Jackson/SANDRA /[id number]
--- NOTE | 2020-03-28 16:56 | History and Physical ---
HISTORY OF PRESENT ILLNESS: The patient presented with symptoms of chest pressure. She was found to have abnormal chest CT compatible with infectious process, right upper lobe, see CT report. She has chronic cough with recent more purulent sputum. She smokes one pack of cigarettes daily and has smoked 1-2 packs throughout her adult life. The patient denies headache or visual change. She denies significant fever or chills. Chronic dyspnea on exertion. Mild diarrhea. Mild nausea. Sedentary. Chronic back pain with degenerative disk disease and chronic use of narcotic analgesics daily. History includes peripheral vascular disease with a recent bilateral aortofemoral bypass grafting, see prior admission here postoperatively for wound infection. History includes primary hypertension and hyperlipoproteinemia. . MEDICATIONS: Reviewed. The patient has history of emphysema. ALLERGIES: ALLERGIC TO CIPRO, PENICILLIN, TORADOL, VANCOMYCIN. FAMILY HISTORY: Denies contributory family history. PHYSICAL EXAMINATION: VITAL SIGNS: Blood pressure 110/60, O2 saturation on 1 L oxygen 96%, pulse is 80, respiratory rate 18. GENERAL: No distress. Sensorium baseline. HEENT: No icterus or pallor. Pupils round, reactive. NECK: Supple. Carotids palpable. No palpable goiter. LUNGS: Generalized marked reduction in breath sounds as prior to admission. CARDIAC: Sounds are distant. ABDOMEN: With old scars. Soft. Bowel sounds normal. EXTREMITIES: Poorly palpable pulses. No edema. Macular eruption on lower legs bilaterally. Strength fair. DTRs depressed. Babinski is negative. See electronic medical record. LABORATORY AND IMAGING STUDIES: Reviewed. Recent exposure to COVID virus according to the patient. ER physician stated COVID test was positive nine day ago. hospital for utilization review purposes. stated the patient did not at this time qualify for inpatient status and should be on observation status. Current plans per orders to support the patient medically. Repeat COVID study. Control pain. Bronchodilators. Steroids. Further treatment pending course. The patient was given antibiotics . She is being seen by her licensed chemical spray technician, appreciate input. See initial and followup orders. Marlon Curry MD BATSHEVA/MODL /[id number]
[2020-03-28] MEDS ORDERED: ATORVASTATIN 40 MG TAB PO SCH (21:00)
== END 2020-03-28 14:08 | disposition left against medical advice (07) ==
LOC: ER 22:25 → INTOOBSV 03-28 00:37 → ERHOLD 03-28 00:37
PROVIDERS: ADMIT Internal Medicine; ATTEND Internal Medicine
DX: J21.9 Acute bronchiolitis, unspecified (principal); F17.210 Nicotine dependence, cigarettes, uncomplicated; F43.10 Post-traumatic stress disorder, unspecified; M81.0 Age-related osteoporosis without current pathological fracture; F31.2 Bipolar disorder, current episode manic severe with psychotic features; M47.896 Other spondylosis, lumbar region; Z11.59 Encounter for screening for other viral diseases; I73.9 Peripheral vascular disease, unspecified; G89.29 Other chronic pain; Z86.19 Personal history of other infectious and parasitic diseases; J44.0 Chronic obstructive pulmonary disease with (acute) lower respiratory infection; E66.9 Obesity, unspecified; Z68.41 Body mass index [BMI] 40.0-44.9, adult; E78.5 Hyperlipidemia, unspecified; J44.1 Chronic obstructive pulmonary disease with (acute) exacerbation
CPT/HCPCS: 36415 ×2; 71045; 71250; 80053 ×2; 82550 ×2; 82553 ×2; 83605; 84484 ×2; 85025 ×2; 87040; 93005; 99285; G0378; J0456; J0696; J1100; J7030; U0002

== ENCOUNTER 2022-04-04 10:34 | Emergency (ER) | payer OTHER ==
[~2022-04-04] VITALS: Ht 160 cm; Wt 106.6 kg
[2022-04-04] MEDS ORDERED: ONDANSETRON HCL INJ 2MG/ML 2ML 2 MG/ML VIAL IV STA (10:49)
[2022-04-04 11:00] LABS: BASOPHILS % 0.3 % (0.0-1.0); EOSINOPHILS # (AUTO) 0.1 (0.0-0.4); EOSINOPHILS % 1.4 % (0.0-6.0); HEMATOCRIT 41.3 % (34.2-44.1); HEMOGLOBIN 12.9 g/dL (12.0-16.0); LYMPHOCYTES # (AUTO) 2.4 (1.0-3.2); LYMPHOCYTES % 24.3 % (18.0-39.1); MEAN CORPUSCULAR HEMOGLOBIN 30.6 pg (28-32); MEAN CORPUSCULAR HGB CONC 31.2 g/dL (31-35); MEAN CORPUSCULAR VOLUME 97.9 fL (81-99); MONOCYTES # (AUTO) 0.6 (0.2-0.8); MONOCYTES % 6.4 % (4.4-11.3); NEUTROPHILS # (AUTO) 6.5 (2.1-6.9); NEUTROPHILS % 67.2 % (38.7-80.0); PLATELET COUNT 250 x10e3/uL (140-360); RED BLOOD COUNT 4.22 x10e6/uL (3.6-5.1); RED CELL DISTRIBUTION WIDTH 12.8 % (11.7-14.4)
[2022-04-04] MEDS ORDERED: Morphine 2mg Syringe 2 MG/ML SYR IV ONE (11:00)
[2022-04-04 11:18] LABS: ALBUMIN 3.2 g/dL (3.5-5.0); ALBUMIN/GLOBULIN RATIO 0.7 (0.8-2.0); ANION GAP 15.5 mmol/L (8-16); CALCIUM 9.5 mg/dL (8.4-10.2); CREATININE, SERUM 0.62 mg/dL (0.57-1.11); POTASSIUM 4.5 mmol/L (3.5-5.1)
[2022-04-04 11:40] LABS: CLARITY,URINE CLEAR (CLEAR); COLOR,URINE YELLOW (YELLOW); KETONES,URINE NEGATIVE (NEGATIVE); LEUKOCYTE ESTERASE ,URINE NEGATIVE (NEGATIVE); NITRITE,URINE NEGATIVE (NEGATIVE); PROTEIN,URINE DIPSTICK NEGATIVE (NEGATIVE); URINE UROBILINOGEN 0.2 mg/dL (0.2 - 1)
[2022-04-04] MEDS ORDERED: IOPAMIDOL 370 MG/ML 100 ML INFUS..BTL INJ ONE (11:56)
[2022-04-04 12:00] LABS: BACTERIA,URINE MODERATE /HPF; EPITHELIAL CELLS,URINE MODERATE /LPF
[2022-04-04 12:01] LABS: RBC,URINE 0-5 /HPF (0-5); WBC,URINE (MAN) 0-5 /HPF (0-5)
[2022-04-04] MEDS ORDERED: SODIUM CHLORIDE 0.9% 1000ML 1,000 ML IV ONE (13:30)
[2022-04-04] MEDS ORDERED: TRAMADOL HCL 50 MG TAB PO ONE (14:00)
[2022-04-04 14:27] VITALS: BP 111/74
[2022-04-04] MEDS ORDERED: XARELTO15 MG PO (14:50)
== END 2022-04-04 14:59 | disposition home or self-care (01) ==
LOC: ER 10:37
DX: R10.32 Left lower quadrant pain (principal); I82.422 Acute embolism and thrombosis of left iliac vein; J44.9 Chronic obstructive pulmonary disease, unspecified; E78.5 Hyperlipidemia, unspecified; K21.9 Gastro-esophageal reflux disease without esophagitis; F41.9 Anxiety disorder, unspecified; M54.9 Dorsalgia, unspecified; G89.29 Other chronic pain
CPT/HCPCS: 36415; 74177; 80053; 81001; 83690; 85025; 99284; J2270; J2405; J7030; Q9967

== ENCOUNTER 2022-04-22 20:11 | Emergency (ER) | payer OTHER ==
[~2022-04-22] VITALS: Ht 160 cm; Wt 81.6 kg
[~2022-04-22 20:11] MED LIST changes: +XARELTO15 MG PO
[2022-04-22 21:16] LABS: BASOPHILS # (AUTO) 0.1 (0.0-0.1); BASOPHILS % 0.8 % (0.0-1.0); EOSINOPHILS # (AUTO) 0.2 (0.0-0.4); EOSINOPHILS % 2.9 % (0.0-6.0); HEMATOCRIT 36.3 % (34.2-44.1); HEMOGLOBIN 11.8 g/dL (12.0-16.0); LYMPHOCYTES # (AUTO) 2.3 (1.0-3.2); MEAN CORPUSCULAR HEMOGLOBIN 30.8 pg (28-32); MEAN CORPUSCULAR HGB CONC 32.5 g/dL (31-35); MEAN CORPUSCULAR VOLUME 94.8 fL (81-99); MONOCYTES # (AUTO) 0.5 (0.2-0.8); MONOCYTES % 6.4 % (4.4-11.3); NEUTROPHILS # (AUTO) 4.7 (2.1-6.9); NEUTROPHILS % 60.4 % (38.7-80.0); PLATELET COUNT 410 x10e3/uL (140-360); RED BLOOD COUNT 3.83 x10e6/uL (3.6-5.1); RED CELL DISTRIBUTION WIDTH 13.7 % (11.7-14.4)
[2022-04-22 21:36] LABS: INR 1.14; PROTHROMBIN TIME 15.6 seconds (11.9-14.5)
[2022-04-22 21:37] LABS: PARTIAL THROMBOPLASTIN TIME 38.2 seconds (23.8-35.5)
[2022-04-22 21:49] LABS: CREATINE KINASE MB 1.2 ng/mL (0-5.0)
[2022-04-22 22:00] LABS: ALBUMIN 3.2 g/dL (3.5-5.0); ALBUMIN/GLOBULIN RATIO 0.7 (0.8-2.0); ANION GAP 16.3 mmol/L (8-16); CALCIUM 9.8 mg/dL (8.4-10.2); CREATININE, SERUM 0.66 mg/dL (0.57-1.11); POTASSIUM 4.3 mmol/L (3.5-5.1)
[2022-04-22] MEDS ORDERED: IOPAMIDOL 370 MG/ML 100 ML INFUS..BTL INJ ONE (22:35)
[2022-04-22] MEDS ORDERED: DOXYCYCLINE HY100 MG PO (23:36)
[2022-04-22 23:59] VITALS: BP 114/68
== END 2022-04-23 00:01 | disposition home or self-care (01) ==
LOC: ER 20:16
DX: J18.9 Pneumonia, unspecified organism (principal); J44.9 Chronic obstructive pulmonary disease, unspecified; E78.5 Hyperlipidemia, unspecified; Z79.02 Long term (current) use of antithrombotics/antiplatelets; Z79.899 Other long term (current) drug therapy; Z95.828 Presence of other vascular implants and grafts; Z86.711 Personal history of pulmonary embolism; Z86.718 Personal history of other venous thrombosis and embolism
CPT/HCPCS: 36415; 71260; 80053; 82550; 82553; 84484; 85025; 85610; 85730; 93005; 99284; Q9967

== ENCOUNTER 2024-05-21 08:57 | Emergency (ER) | payer OTHER ==
[~2024-05-21] VITALS: Ht 160 cm; Wt 68.5 kg
[~2024-05-21 08:57] MED LIST changes: +ALBUTEROL0.63 MG/3 NEB; +ASPIRIN EC81 MG PO; +DICYCLOMINE HCL20 MG PO; +DOXYCYCLINE HY100 MG PO; +LATUDA80 MG PO; +LUNESTA3 MG PO; +OXYCODONE HCL20 M1 PO; +PROTONIX20 MG PO; +SKELAXIN PO; +ZETIA10 MG PO
[2024-05-21 09:06] VITALS: RESP 16; TEMP 98.7
[2024-05-21 09:38] VITALS: PULSE 78; O2SAT 97
[2024-05-21] MEDS: HYDROCODONE/APAP 10MG-325MG TAB PO ONE (10:22)
[2024-05-21] MEDS ORDERED: HYDROCODON-ACE1 EAC9 PO (11:10)
== END 2024-05-21 11:15 | disposition home or self-care (01) ==
LOC: ER 09:04
DX: S80.02XA Contusion of left knee, initial encounter (principal); W18.39XA Other fall on same level, initial encounter; Y93.01 Activity, walking, marching and hiking; Y92.89 Other specified places as the place of occurrence of the external cause; J44.9 Chronic obstructive pulmonary disease, unspecified; E78.5 Hyperlipidemia, unspecified; G62.9 Polyneuropathy, unspecified; M54.9 Dorsalgia, unspecified; G89.29 Other chronic pain; Z79.01 Long term (current) use of anticoagulants; Z86.718 Personal history of other venous thrombosis and embolism; Z96.652 Presence of left artificial knee joint; Z96.611 Presence of right artificial shoulder joint; F17.210 Nicotine dependence, cigarettes, uncomplicated
CPT/HCPCS: 99283

== ENCOUNTER → 2024-06-09 | Day surgery (SDC) | payer OTHER ==
[2024-06-03 09:44] LABS: BASOPHILS % 0.5 % (0.0-1.0); EOSINOPHILS # (AUTO) 0.1 (0.0-0.4); EOSINOPHILS % 1.8 % (0.0-6.0); HEMATOCRIT 44.5 % (34.2-44.1); HEMOGLOBIN 13.8 g/dL (12.0-16.0); LYMPHOCYTES # (AUTO) 3.3 (1.0-3.2); LYMPHOCYTES % 44.5 % (18.0-39.1); MEAN CORPUSCULAR HEMOGLOBIN 31.5 pg (28-32); MEAN CORPUSCULAR VOLUME 101.6 fL (81-99); MONOCYTES # (AUTO) 0.5 (0.2-0.8); MONOCYTES % 6.4 % (4.4-11.3); NEUTROPHILS # (AUTO) 3.5 (2.1-6.9); NEUTROPHILS % 46.8 % (38.7-80.0); PLATELET COUNT 271 x10e3/uL (140-360); RED BLOOD COUNT 4.38 x10e6/uL (3.6-5.1); RED CELL DISTRIBUTION WIDTH 12.6 % (11.7-14.4); WHITE BLOOD COUNT 7.37 x10e3/uL (4.8-10.8)
[2024-06-03 10:04] LABS: INR 0.87; PARTIAL THROMBOPLASTIN TIME 24.8 seconds (23.8-35.5); PROTHROMBIN TIME 12.4 seconds (11.9-14.5)
[2024-06-03 10:13] LABS: CALCIUM 9.5 mg/dL (8.4-10.2); CREATININE, SERUM 0.69 mg/dL (0.57-1.11)
[~2024-06-09] MED LIST changes: +CEFAZOLIN SODIUM 2 GM ONE; +DEXAMETHASONE SOD PHOS INJ 4 MG/ML SDV ONE; +EPHEDRINE SULFATE INJ 50 MG/ML VIAL ONE; +FAMOTIDINE 20 MG/2 ML VIAL IV ONE; +FENTANYL CITRATE/PF 100MCG/2 ML INJ ONE; +HYDROCODON-ACE1 EAC9 PO; +LACTATED RINGER'S 1,000 ML ONE; +LIDOCAINE HCL 2% LOCAL INJ 5 ML SDV VIAL INJ ONE; +METOCLOPRAMIDE HCL 10 MG/2ML VIAL ONE; +MIDAZOLAM HCL 2 MG/2 ML VIAL ONE; +ONDANSETRON HCL INJ 2MG/ML 2ML 2 MG/ML VIAL ONE; +PHENYLEPHRINE HCL 1% 10 MG/ML VIAL ONE; +PROPOFOL IV EMULSION 10 MG/ML 20 ML VIAL ONE; +SEVOFLURANE INHAL SOLN 250 ML PEN BTL ONE
[2024-06-09 10:27] VITALS: TEMP 97.3
[2024-06-09] MEDS: FENTANYL CITRATE/PF 100MCG/2 ML INJ ONE (10:38)
[2024-06-09 11:20] VITALS: BP 123/60; PULSE 78; RESP 16; O2SAT 96
[2024-06-09] MEDS: CEFTRIAXONE 1 GM VIAL ONE (11:20)
== END | disposition home or self-care (01) ==
LOC: OR 06:26
PROVIDERS: ATTEND Orthopaedic Surgery
DX: M65.811 Other synovitis and tenosynovitis, right shoulder (principal); M25.511 Pain in right shoulder; Z96.611 Presence of right artificial shoulder joint; I25.10 Atherosclerotic heart disease of native coronary artery without angina pectoris; E78.5 Hyperlipidemia, unspecified; J44.9 Chronic obstructive pulmonary disease, unspecified; F17.200 Nicotine dependence, unspecified, uncomplicated; I73.9 Peripheral vascular disease, unspecified; F43.10 Post-traumatic stress disorder, unspecified; F41.9 Anxiety disorder, unspecified; F32.A Depression, unspecified; K76.0 Fatty (change of) liver, not elsewhere classified; K21.9 Gastro-esophageal reflux disease without esophagitis; Z86.711 Personal history of pulmonary embolism; Z79.01 Long term (current) use of anticoagulants; M81.0 Age-related osteoporosis without current pathological fracture; M06.9 Rheumatoid arthritis, unspecified; M19.91 Primary osteoarthritis, unspecified site; K58.9 Irritable bowel syndrome, unspecified; Z01.810 Encounter for preprocedural cardiovascular examination; Z01.812 Encounter for preprocedural laboratory examination; Z01.818 Encounter for other preprocedural examination; Z79.899 Other long term (current) drug therapy
CPT/HCPCS: 20610; 29821; 36415; 71046; 80048; 85025; 85610; 85730; 88304; 93005; J0696; J1100; J2003; J2250; J2371; J2405; J2704; J2765; J3010; J7121

== ENCOUNTER 2024-08-24 22:39 | Emergency (ER) | payer MEDICAID ==
[~2024-08-24] VITALS: Ht 160 cm; Wt 63.0 kg
[~2024-08-24 22:39] MED LIST changes: -CEFAZOLIN SODIUM 2 GM ONE; -DEXAMETHASONE SOD PHOS INJ 4 MG/ML SDV ONE; -EPHEDRINE SULFATE INJ 50 MG/ML VIAL ONE; -FAMOTIDINE 20 MG/2 ML VIAL IV ONE; -FENTANYL CITRATE/PF 100MCG/2 ML INJ ONE; -LACTATED RINGER'S 1,000 ML ONE; -LIDOCAINE HCL 2% LOCAL INJ 5 ML SDV VIAL INJ ONE; -METOCLOPRAMIDE HCL 10 MG/2ML VIAL ONE; -MIDAZOLAM HCL 2 MG/2 ML VIAL ONE; -ONDANSETRON HCL INJ 2MG/ML 2ML 2 MG/ML VIAL ONE; -PHENYLEPHRINE HCL 1% 10 MG/ML VIAL ONE; -PROPOFOL IV EMULSION 10 MG/ML 20 ML VIAL ONE; -SEVOFLURANE INHAL SOLN 250 ML PEN BTL ONE
[2024-08-24 23:52] LABS: BASOPHILS % 0.7 % (0.0-1.0); EOSINOPHILS # (AUTO) 0.1 (0.0-0.4); EOSINOPHILS % 2.2 % (0.0-6.0); HEMATOCRIT 40.2 % (34.2-44.1); HEMOGLOBIN 13.3 g/dL (12.0-16.0); LYMPHOCYTES # (AUTO) 2.8 (1.0-3.2); LYMPHOCYTES % 47.7 % (18.0-39.1); MEAN CORPUSCULAR HEMOGLOBIN 31.4 pg (28-32); MEAN CORPUSCULAR HGB CONC 33.1 g/dL (31-35); MEAN CORPUSCULAR VOLUME 94.8 fL (81-99); MONOCYTES # (AUTO) 0.3 (0.2-0.8); MONOCYTES % 5.3 % (4.4-11.3); NEUTROPHILS # (AUTO) 2.6 (2.1-6.9); NEUTROPHILS % 43.9 % (38.7-80.0); PLATELET COUNT 227 x10e3/uL (140-360); RED BLOOD COUNT 4.24 x10e6/uL (3.6-5.1); RED CELL DISTRIBUTION WIDTH 13.2 % (11.7-14.4); WHITE BLOOD COUNT 5.87 x10e3/uL (4.8-10.8)
[2024-08-25 00:25] LABS: ALBUMIN 3.8 g/dL (3.5-5.0); ANION GAP 16.4 mmol/L (8-16); BILIRUBIN,TOTAL 0.3 mg/dL (0.2-1.2); CALCIUM 9.4 mg/dL (8.4-10.2); CREATININE, SERUM 0.74 mg/dL (0.57-1.11); POTASSIUM 4.4 mmol/L (3.5-5.1); TOTAL PROTEIN 7.7 g/dL (6.5-8.1)
[2024-08-25] MEDS ORDERED: SODIUM CHLORIDE 0.9% 100 ML ONE (00:46)
[2024-08-25] MEDS ORDERED: IOPAMIDOL 370 MG/ML 100 ML INFUS..BTL INJ ONE (00:47)
[2024-08-25 02:30] VITALS: PULSE 73; RESP 16; TEMP 98; O2SAT 94
== END 2024-08-25 02:42 | disposition home or self-care (01) ==
LOC: ER 23:13
DX: R10.32 Left lower quadrant pain (principal); J44.9 Chronic obstructive pulmonary disease, unspecified; E78.5 Hyperlipidemia, unspecified; G62.9 Polyneuropathy, unspecified; F41.9 Anxiety disorder, unspecified; M54.9 Dorsalgia, unspecified; K43.9 Ventral hernia without obstruction or gangrene; Z96.652 Presence of left artificial knee joint; F17.210 Nicotine dependence, cigarettes, uncomplicated
CPT/HCPCS: 36415; 75635; 80053; 85025; 99284; J7050; Q9967

== ENCOUNTER 2024-09-01 19:37 | Emergency (ER) | payer MEDICAID ==
[~2024-09-01] VITALS: Ht 160 cm; Wt 63.0 kg
[2024-09-01 19:40] VITALS: TEMP 98.8
[2024-09-01 20:32] LABS: BASOPHILS % 0.4 % (0.0-1.0); EOSINOPHILS # (AUTO) 0.1 (0.0-0.4); EOSINOPHILS % 2.2 % (0.0-6.0); HEMATOCRIT 41.8 % (34.2-44.1); HEMOGLOBIN 13.7 g/dL (12.0-16.0); LYMPHOCYTES # (AUTO) 2.8 (1.0-3.2); LYMPHOCYTES % 51.4 % (18.0-39.1); MEAN CORPUSCULAR HEMOGLOBIN 30.8 pg (28-32); MEAN CORPUSCULAR HGB CONC 32.8 g/dL (31-35); MEAN CORPUSCULAR VOLUME 93.9 fL (81-99); MONOCYTES # (AUTO) 0.3 (0.2-0.8); MONOCYTES % 5.6 % (4.4-11.3); NEUTROPHILS # (AUTO) 2.2 (2.1-6.9); NEUTROPHILS % 40.2 % (38.7-80.0); PLATELET COUNT 286 x10e3/uL (140-360); RED BLOOD COUNT 4.45 x10e6/uL (3.6-5.1); RED CELL DISTRIBUTION WIDTH 13.1 % (11.7-14.4); WHITE BLOOD COUNT 5.51 x10e3/uL (4.8-10.8)
[2024-09-01] MEDS: SODIUM CHLORIDE 0.9% 1000ML 1,000 ML IV ONE (20:38)
[2024-09-01] MEDS: ONDANSETRON HCL INJ 2MG/ML 2ML 2 MG/ML VIAL IV STA (20:39)
[2024-09-01 20:40] VITALS: PULSE 83; RESP 13
[2024-09-01 20:57] LABS: ALBUMIN 3.5 g/dL (3.5-5.0); ALBUMIN/GLOBULIN RATIO 1.1 (0.8-2.0); BILIRUBIN,TOTAL 0.3 mg/dL (0.2-1.2); CALCIUM 9.6 mg/dL (8.4-10.2); CREATININE, SERUM 0.73 mg/dL (0.57-1.11); TOTAL PROTEIN 6.8 g/dL (6.5-8.1)
[2024-09-01] MEDS ORDERED: IOPAMIDOL 370 MG/ML 100 ML INFUS..BTL INJ ONE (21:03)
[2024-09-01 23:16] VITALS: BP 106/54; PULSE 68; RESP 15; TEMP 98.3; O2SAT 95
== END 2024-09-01 23:00 | disposition home or self-care (01) ==
LOC: ER 19:48
DX: R10.32 Left lower quadrant pain (principal); Z76.5 Malingerer [conscious simulation]; J44.9 Chronic obstructive pulmonary disease, unspecified; E78.5 Hyperlipidemia, unspecified; G62.9 Polyneuropathy, unspecified; M54.9 Dorsalgia, unspecified; G89.29 Other chronic pain; F41.9 Anxiety disorder, unspecified
CPT/HCPCS: 36415; 80053; 80320; 83690; 85025; 99284; J2405; J7030; Q9967

== ENCOUNTER → 2024-10-21 | Outpatient (REF) | payer MEDICAID | LOC: CARD 09:26 | PROVIDERS: ATTEND Surgery Vascular Surgery | DX: I73.9 Peripheral vascular disease, unspecified (principal) | CPT/HCPCS: 93925 ==

== ENCOUNTER → 2024-11-23 | Outpatient (REF) | payer MEDICAID ==
[~2024-11-23] MED LIST changes: +IOPAMIDOL 370 MG/ML 100 ML INFUS..BTL INJ ONE
[2024-11-23 11:39] LABS: CREATININE, SERUM 0.68 mg/dL (0.57-1.11)
== END ==
LOC: CT 09:53
PROVIDERS: ATTEND Nurse Practitioner
DX: I74.09 Other arterial embolism and thrombosis of abdominal aorta (principal); I73.9 Peripheral vascular disease, unspecified; Z95.828 Presence of other vascular implants and grafts; Z87.891 Personal history of nicotine dependence
CPT/HCPCS: 36415; 75635; 82565; 84520; Q9967